=== PATIENT | female | born 1975 | race Caucasian/White ===

== ENCOUNTER → 2016-12-22 | Outpatient (CLI) | payer OTHER ==
[2016-12-22 09:48] LABS: Basophils % (A) 1 %; CH 28.4; CHCM 33.4; Eosinophils # (A) 0.2 k/uL (0-0.7); Eosinophils % (A) 3 %; HCT 41.5 % (34.0-46.0); HDW 3.09; HGB 13.5 gm/dL (11.4-16.0); Luc # (Auto) 0.16; Luc % (Auto) 2; Lymphocytes # (A) 1.5 k/uL (1.0-4.8); Lymphocytes % (A) 19 %; MCH 27.7 pg (25.0-35.0); MCHC 32.6 g/dL (31.0-37.0); MCV 85.1 fL (80.0-100.0); Mean Platelet Volume 7.2; Monocytes # (A) 0.4 k/uL (0-1.0); Monocytes % (A) 5 %; Neutrophils # (A) 5.5 k/uL (1.3-7.7); Neutrophils % (A) 71 %; RBC 4.87 m/uL (3.80-5.40); RDW 15.4 % (11.5-15.5); WBC 7.7 k/uL (3.8-10.6); WBC (Perox) 8.11
[2016-12-22 10:52] LABS: Erythrocyte Sedimentation Rate 13 mm/hr (0-20)
[2016-12-22 11:29] LABS: ALT 31 U/L (9-52); AST 22 U/L (14-36); Anion Gap 15 mmol/L; Blood Urea Nitrogen 13 mg/dL (7-17); C Reactive Protein 7.7 mg/L (<10.0); Calcium 9.5 mg/dL (8.4-10.2); Carbon Dioxide 21 mmol/L (22-30); Chloride 105 mmol/L (98-107); Glucose 82 mg/dL (74-99); Non-African American GFR(MDRD) >60 (>60 ml/min/1.73 sqM); Potassium 4.5 mmol/L (3.5-5.1); Sodium 141 mmol/L (137-145)
== END | disposition home or self-care (01) ==
LOC: LABWHC1 08:28
PROVIDERS: ATTEND Internal Medicine Rheumatology
DX: M13.0 Polyarthritis, unspecified (principal)
CPT/HCPCS: 36415; 80048; 84450; 84460; 85025; 85652; 86140

== ENCOUNTER → 2017-01-20 | Outpatient (CLI) | payer OTHER ==
--- NOTE | 2017-01-23 09:38 | MM ---
Reason for exam: screening (asymptomatic). Baseline mammogram. Physical Findings: Nurse did not find any significant physical abnormalities on exam. MG Screening Mammo w CAD Bilateral CC and MLO view(s) were taken. The breast tissue is heterogeneously dense. This may lower the sensitivity of mammography. No significant changes when compared with prior studies. ASSESSMENT: Benign, BI-RAD 2 RECOMMENDATION: Routine screening mammogram of both breasts in 1 year.
== END | disposition home or self-care (01) ==
LOC: RADMAMWWP 06:53
PROVIDERS: ATTEND Family Medicine
DX: Z12.31 Encounter for screening mammogram for malignant neoplasm of breast (principal)

== ENCOUNTER → 2017-02-06 | Day surgery (SDC) | payer OTHER ==
[~2017-02-06] MED LIST: LACTATED RINGERS 1,000 ML IV SCH; LIDOCAINE 1% INJ 10MG/ML (20 ML MDV) ONE; PROPOFOL 10 MG/ML 20 ML VIAL IV ONE
[2017-02-06 07:29] VITALS: RESP 16; TEMP 97.2
--- NOTE | 2017-02-06 08:02 | P.GSHP ---
History of Present Illness H&P Date: 02/06/17 Chief Complaint: History of colonic polyps This a 41-year-old female for from Dr. Fernanda macias. Patient history of clot polyps. Her last colonoscopy was approximately 2 years ago. - Constitutional Constitutional: Reports as per HPI Past Medical History Past Medical History: CVA/TIA Additional Past Medical History / Comment(s): HX OF SEVERAL TIA'S -MOST OCCURRED DURING , RARE MIGRAINES, I.B.S.; Eosinophilic Esophagitis; Colitis; Endometriosis History of Any Multi-Drug Resistant Organisms: None Reported Additional Past Surgical History / Comment(s): FRANKIE FOOT SURG, LAPAROSCOPY FOR ENDOMETRIOSIS, COLONOSCOPY. STEROID INJECTIONS IN KNEES JANUARY 2015. Past Anesthesia/Blood Transfusion Reactions: No Reported Reaction, Motion Sickness Past Psychological History: No Psychological Hx Reported Smoking Status: Never smoker Past Alcohol Use History: None Reported Past Drug Use History: None Reported - Past Family History Mother Additional Family Medical History / Comment(s): BENIGN BRAIN TUMOR Medications and Allergies Home Medications Medication Instructions Recorded Confirmed Type Ergocalciferol (Vitamin D2) 1.25 mg PO WEEKLY 02/06/17 02/06/17 History [Vitamin D2] Folic Acid 1 mg PO DAILY 02/06/17 02/06/17 History Gabapentin [Neurontin] 300 mg PO DAILY 02/06/17 02/06/17 History Methotrexate Sodium [Methotrexate] 15 mg PO WEEKLY 02/06/17 02/06/17 History Omeprazole 20 mg PO DAILY 02/06/17 02/06/17 History Allergies Allergy/AdvReac Type Severity Reaction Status Date / Time wheat Allergy Unknown Verified 08/16/15 13:31 Iodinated Contrast Media - AdvReac Severe COUGHING Verified 08/16/15 13:31 Oral and [Iodinated Contrast Media - IV Dye] grains Allergy Unknown Uncoded 08/16/15 13:31 Surgical - Exam Vital Signs Temp Pulse Resp BP Pulse Ox 97.2 F L 63 16 114/74 96 02/06/17 07:27 02/06/17 07:27 02/06/17 07:27 02/06/17 07:27 02/06/17 07:27 - General well developed, no distress - Eyes PERRL - ENT normal pinna - Neck no masses - Respiratory normal expansion - Cardiovascular Rhythm: regular - Abdomen Abdomen: soft, non tender Assessment and Plan Plan: History of colon polyps. We'll perform colonoscopy.
--- NOTE | 2017-02-06 08:15 | P.OP ---
Date of Procedure: 02/06/17 Preoperative Diagnosis: History of colonic polyps Postoperative Diagnosis: Normal colonoscopy Procedure(s) Performed: Colonoscopy Anesthesia: MAC Surgeon: Lico Mulligan Pathology: none sent Condition: stable Disposition: PACU Description of Procedure: PROCEDURE: The patient was placed on the endoscopy table in the lateral position. Digital rectal examination was performed which revealed no abnormalities. s. Flexible colonoscope was then placed in the patient's anus and passed throughout the entire colon. The ileocecal valve was visualized. The cecum, ascending, transverse, descending and sigmoid colon were normal. The rectum was normal as well. There were no masses, polyps or diverticula noted in the entire colon. SUMMARY OF FINDINGS: Normal colonoscopy.
[2017-02-06 08:38] VITALS: BP 114/68
[2017-02-06 08:51] VITALS: PULSE 62
== END | disposition home or self-care (01) ==
LOC: ORWHC2ENDO 07:04
PROVIDERS: ATTEND Surgery
DX: Z12.11 Encounter for screening for malignant neoplasm of colon (principal); Z86.010 Personal history of colon polyps; K21.9 Gastro-esophageal reflux disease without esophagitis; Z86.73 Personal history of transient ischemic attack (TIA), and cerebral infarction without residual deficits; Z79.899 Other long term (current) drug therapy; Z91.018 Allergy to other foods
CPT/HCPCS: 81025; 84703; J2001; J2704; G0105; 45378

== ENCOUNTER 2019-02-07 19:47 | Emergency (ER) | payer BC, OTHER ==
[2019-02-07 20:04] VITALS: RESP 16
[2019-02-07] MEDS ORDERED: MORPHINE SULFATE 4 MG/ML SYRINGE IM STA (20:22)
[2019-02-07] MEDS ORDERED: KETOROLAC 30 MG/ML 1 ML VIAL IM STA (20:22)
[2019-02-07] MEDS ORDERED: LIDOCAINE 5% PATCH TOPICAL STA (20:23)
--- NOTE | 2019-02-07 20:25 | ED ---
General Adult HPI - General Chief complaint: Extremity Problem,Nontraumatic Stated complaint: leg pain/varicose veins Time Seen by Provider: 02/07/19 20:06 Source: patient Mode of arrival: ambulatory Limitations: no limitations - History of Present Illness Initial comments: Dictation was produced using [employer] dictation software. please excuse any grammatical, word or spelling errors. Chief Complaint: 43-year-old female presents with left thigh pain. History of Present Illness: She is a 43-year-old female presents with left thigh pain. Patient states today she noted the pain. She describes the pain as a sharp knifelike sensation to her left lateral thigh. She states that she looked down and noticed a new varicose vein. Denies any other complaints at this time. Patient still able to ambulate. Patient has a past medical history of rheumatoid toilet disease. Denies any neural deficits to the left lower extre mity. The ROS documented in this emergency department record has been reviewed and confirmed by me. Those systems with pertinent positive or negative responses have been documented in the HPI. All other systems are other negative and/or noncontributory. PHYSICAL EXAM: General Impression: Alert and oriented x3, not in acute distress HEENT: Normocephalic atraumatic, extra-ocular movements intact, pupils equal and reactive to light bilaterally, mucous membranes moist. Cardiovascular: Heart regular rate and rhythm, S1&S2 audible, no murmurs, rubs or gallops Chest: Lungs clear to auscultation bilaterally, no rhonchi, no wheeze, no rales Abdomen: Bowel sounds present, abdomen soft, non-tender, non-distended, no organomegaly Musculoskeletal: Pulses present and equal in all extremities, no peripheral edema, point tenderness over the left lateral thigh, no induration, erythema, there is a varicosity noted there. Motor: no focal deficits noted Neurological: CN II-XII grossly intact, no focal motor or sensory deficits noted Skin: Intact with no visualized rashes Psych: Normal affect and mood ED course: 43-year-old female with past medical history of rheumatoid disease presents with left lateral thigh pain. As upon arrival are within acceptable limits. Patient's symptoms are positive for point tenderness over a set of varicosity.. No signs of infection at this time. Patient same ambulate without complications. Patient here seeking relief. Imaging studies indicated at this time. There is concern that maybe patient's symptoms reflect superficial thrombophlebitis or symptomatic varicosity. Patient lidocaine patch, IM analgesia. Patient clear for discharge. Patient does follow up with PCP. Patient referral to vascular surgery for evaluation of varicose veins. - Related Data Home Medications Medication Instructions Recorded Confirmed Ergocalciferol (Vitamin D2) 1.25 mg PO WEEKLY 02/06/17 02/06/17 [Vitamin D2] Folic Acid 1 mg PO DAILY 02/06/17 02/06/17 Gabapentin [Neurontin] 300 mg PO DAILY 02/06/17 02/06/17 Methotrexate Sodium [Methotrexate] 15 mg PO WEEKLY 02/06/17 02/06/17 Omeprazole 20 mg PO DAILY 02/06/17 02/06/17 Allergies Allergy/AdvReac Type Severity Reaction Status Date / Time wheat Allergy Unknown Verified 02/07/19 20:04 Iodinated Contrast- Oral and AdvReac Severe COUGHING Verified 02/07/19 20:04 IV Dye [Iodinated Contrast Media - IV Dye] grains Allergy Unknown Uncoded 02/07/19 20:04 Review of Systems ROS Statement: Those systems with pertinent positive or pertinent negative responses have been documented in the HPI. ROS Other: All systems not noted in ROS Statement are negative. Past Medical History Past Medical History: CVA/TIA, Osteoarthritis (OA), Rheumatoid Arthritis (RA) Additional Past Medical History / Comment(s): RARE MIGRAINES, I.B.S.; Eosinophilic Esophagitis; Colitis; Endometriosis History of Any Multi-Drug Resistant Organisms: None Reported Additional Past Surgical History / Comment(s): FRANKIE FOOT SURG, LAPAROSCOPY FOR ENDOMETRIOSIS, COLONOSCOPY. STEROID INJECTIONS IN KNEES JANUARY 2015. Past Anesthesia/Blood Transfusion Reactions: No Reported Reaction, Motion Sickness Past Psychological History: No Psychological Hx Reported Smoking Status: Never smoker Past Alcohol Use History: None Reported Past Drug Use History: None Reported - Past Family History Mother Additional Family Medical History / Comment(s): BENIGN BRAIN TUMOR General Exam Limitations: no limitations Course Vital Signs 02/07/19 20:01 Temperature 98.4 F Pulse Rate 86 Respiratory 16 Rate Blood Pressure 146/83 O2 Sat by Pulse 98 Oximetry Disposition Clinical Impression: Varicose vein of leg, Leg pain Disposition: HOME SELF-CARE Condition: Good Instructions (If sedation given, give patient instructions): Vein Stripping (DC) Is patient prescribed a controlled substance at d/c from ED?: No Referrals: Fernanda Hopkins DO [Primary Care Provider] - 1-2 days Valentín Lundy DO [Doctor of Osteopathic Medicine] - 1-2 days Nathaniel Rosado DO [STAFF PHYSICIAN] - 1-2 days Sorin Riggs MD [STAFF PHYSICIAN] - 1-2 days Time of Disposition: 20:25
[2019-02-07 21:11] VITALS: BP 122/75; PULSE 70; TEMP 98.2
== END 2019-02-07 21:07 | disposition home or self-care (01) ==
LOC: EC 19:47
DX: I83.812 Varicose veins of left lower extremity with pain (principal); M06.9 Rheumatoid arthritis, unspecified; Z91.018 Allergy to other foods; Z91.041 Radiographic dye allergy status; Z79.899 Other long term (current) drug therapy; Z86.69 Personal history of other diseases of the nervous system and sense organs; Z87.19 Personal history of other diseases of the digestive system; Z98.890 Other specified postprocedural states
CPT/HCPCS: 99283; 96372 ×2; J2270; J1885

== ENCOUNTER → 2019-02-14 | Outpatient (CLI) | payer BC ==
--- NOTE | 2019-02-14 15:53 | XR ---
EXAMINATION TYPE: XR femur LT DATE OF EXAM: 02/14/2019 COMPARISON: NONE HISTORY: 44-year-old female with leg pain for one week TECHNIQUE: None FINDINGS: There is mild marginal spurring at the left hip. Hip and knee articulations appear grossly intact. Ex tensor mechanism is intact. No knee joint effusion. No acute fracture or significant soft tissue abno rmality seen. IMPRESSION: Left femur without acute osseous abnormality seen.
== END | disposition home or self-care (01) ==
LOC: RADXRMAIN 14:55
PROVIDERS: ATTEND Surgery
DX: M79.605 Pain in left leg (principal)

== ENCOUNTER 2019-04-05 09:12 | Day surgery (SDC) | payer BC ==
[2019-04-03 12:47] VITALS: BMI 33.2
[2019-04-05 09:56] VITALS: RESP 16; TEMP 98.6
[2019-04-05] MEDS ORDERED: LACTATED RINGERS 1,000 ML IV ONE (10:00)
[2019-04-05] MEDS ORDERED: LIDOCAINE 1% 20 ML VIAL (10MG/ML) FOR IV START INTRADERMA ONE (10:00)
[2019-04-05] MEDS ORDERED: GLYCOPYRROLATE 0.2 MG/ML 2 ML VIAL ONE (10:28)
[2019-04-05] MEDS ORDERED: LIDOCAINE 1% INJ 10MG/ML (20 ML MDV) ONE (10:28)
[2019-04-05] MEDS ORDERED: PROPOFOL 10 MG/ML 20 ML VIAL IV ONE (10:28)
--- NOTE | 2019-04-05 10:38 | P.GSHP ---
History of Present Illness H&P Date: 04/05/19 Chief Complaint: GERD, inflamed or bowel disease This is a 44-year-old female who's had issues with anemia, GI bleed and GERD. She has a history of Crohn's disease. Past Medical History Past Medical History: CVA/TIA, Fibromyalgia, GERD/Reflux, Osteoarthritis (OA), Rheumatoid Arthritis (RA) Additional Past Medical History / Comment(s): RARE MIGRAINES, I.B.S.; Eosinophilic Esophagitis; Colitis; Endometriosis, colon polyps, recent anemia, TIA's x4-some short term memory issues, bleeding hemorrhoids currently History of Any Multi-Drug Resistant Organisms: None Reported Past Surgical History: Orthopedic Surgery Additional Past Surgical History / Comment(s): FRANKIE FOOT SURG, LAPAROSCOPY FOR ENDOMETRIOSIS, COLONOSCOPIES Past Anesthesia/Blood Transfusion Reactions: No Reported Reaction, Motion Sickness Additional Past Anesthesia/Blood Transfusion Reaction / Comment(s): occasionally slow to wake up Smoking Status: Never smoker - Past Family History Mother Additional Family Medical History / Comment(s): BENIGN BRAIN TUMOR Medications and Allergies Home Medications Medication Instructions Recorded Confirmed Type DULoxetine HCL [Cymbalta] 30 mg PO DAILY 04/03/19 04/03/19 History Ferrous Sulfate [Feosol] 65 mg PO DAILY 04/03/19 04/03/19 History Hydroxychloroquine Sulfate 200 mg PO BID 04/03/19 04/03/19 History [Plaquenil] Pantoprazole Sodium [Protonix] 40 mg PO DAILY 04/03/19 04/03/19 History Phentermine HCl [Adipex-P] 0.5 tab PO DAILY 04/03/19 04/03/19 History Allergies Allergy/AdvReac Type Severity Reaction Status Date / Time wheat Allergy Unknown Verified 04/05/19 09:48 Iodinated Contrast- Oral and AdvReac Severe COUGHING Verified 04/05/19 09:48 IV Dye [Iodinated Contrast Media - IV Dye] grains Allergy Unknown Uncoded 04/05/19 09:48 Surgical - Exam Vital Signs Temp Pulse Resp BP Pulse Ox 98.6 F 77 16 129/70 98 04/05/19 09:54 04/05/19 09:54 04/05/19 09:54 04/05/19 09:54 04/05/19 09:54 - General well developed, well nourished, no distress - Eyes PERRL - ENT normal pinna - Neck no masses - Respiratory normal expansion - Cardiovascular Rhythm: regular - Abdomen Abdomen: soft, non tender Assessment and Plan Assessment: GERD, Crohn disease. We'll perform EGD and colonoscopy.
--- NOTE | 2019-04-05 10:59 | P.OP ---
Date of Procedure: 04/05/19 Preoperative Diagnosis: GERD GI bleed Crohn's disease Postoperative Diagnosis: Antral gastritis Moderate size hiatal hernia Mild esophagitis Rectal polyp Procedure(s) Performed: EGD Colonoscopy Anesthesia: MAC Surgeon: Lico Mulligan Pathology: other (Rectal polyp, antrum, esophagus) Condition: stable Disposition: PACU Description of Procedure: The patient's placed on the endoscopy table in the lateral position. She received IV sedation. The gastroscope placed oropharynx and passed into the e sophagus and into the stomach. Scope was then placed through the pylorus. The first and second portion of the duodenum appeared normal. Scope was then brought back the antrum this appeared mildly inflamed. A biopsy was performed. The scope was then retroflexed and the remainder of the stomach appeared normal. The GE junction was at 38 cm. There was a moderate size hiatal hernia. The distal esophagus appeared mildly inflamed a biopsies performed. The proximal esophagus appeared normal. Scope was withdrawn for patient. Next digital rectal exam was performed which revealed a few external hemorrhoids. Flexible colonoscope was then placed patient anus passed rotator entire colon. The ileocecal valve was visualized. The cecum, ascending and transverse colon appeared normal. The descending and sigmoid colon appeared normal. The scope was then brought back the rectum and a polyp was visualized and removed with the cold forcep. Scope was withdrawn for patient. There is no active bleeding seen on endoscopy. Patient's Rectal Bleeding May Be Due To Hemorrhoids.
[2019-04-05 11:11] VITALS: BP 114/74; PULSE 58
== END 2019-04-05 11:26 | disposition home or self-care (01) ==
LOC: ORWHC2ENDO 09:12
PROVIDERS: ATTEND Surgery
DX: K29.50 Unspecified chronic gastritis without bleeding (principal); K21.0 Gastro-esophageal reflux disease with esophagitis; K44.9 Diaphragmatic hernia without obstruction or gangrene; K62.1 Rectal polyp; K64.4 Residual hemorrhoidal skin tags; K50.90 Crohn's disease, unspecified, without complications; M79.7 Fibromyalgia; M19.90 Unspecified osteoarthritis, unspecified site; M06.9 Rheumatoid arthritis, unspecified; G43.909 Migraine, unspecified, not intractable, without status migrainosus; I69.311 Memory deficit following cerebral infarction; D64.9 Anemia, unspecified; Z86.010 Personal history of colon polyps; Z79.899 Other long term (current) drug therapy; Z91.041 Radiographic dye allergy status; Z91.018 Allergy to other foods
CPT/HCPCS: 81025; 88305; 45380; 43239; J2001; J2704

== ENCOUNTER 2019-05-18 21:59 | Emergency (ER) | payer BC ==
[2019-05-18 22:06] VITALS: TEMP 97.8
[2019-05-18] MEDS ORDERED: KETOROLAC 30 MG/ML 1 ML VIAL IM STA (22:27)
[2019-05-18] MEDS ORDERED: DIAZEPAM 5 MG/ML 2 ML INJ IM ONE (22:27)
--- NOTE | 2019-05-18 22:53 | ED ---
Neck Injury/Pain HPI - General Chief Complaint: Neck Pain/Injury Stated Complaint: Shoulder/neck pain Time Seen by Provider: 05/18/19 22:11 Mode of arrival: ambulatory Limitations: no limitations - History of Present Illness Initial Comments: 44-year-old female patient with past medical history significant for fibromyalgia and rheumatoid arthritis presents to the emergency department today for evaluation of right neck and right shoulder pain. Patient states that she has been having issues with her neck and shoulder for the last several months. States she's been getting repeated steroid injections. Patient states are up-to-date states the pain has gradually increased. Patient states that the pain increases with movement of the neck her right arm. She denies testicular shortness of breath, upper back pain, nausea, or vomiting. Denies any abdominal pain. Denies any fever or chills. Patient does not take any pain medications at home. Patient denies any recent rash, diarrhea, constipation, back pain, numbness, tingling, dizziness, weakness, hematuria, dysuria, urinary urgency, urinary frequency, headache, visual changes, or any other complaints. - Related Data Home Medications Medication Instructions Recorded Confirmed DULoxetine HCL [Cymbalta] 30 mg PO DAILY 04/03/19 04/03/19 Ferrous Sulfate [Feosol] 65 mg PO DAILY 04/03/19 04/03/19 Hydroxychloroquine Sulfate 200 mg PO BID 04/03/19 04/03/19 [Plaquenil] Pantoprazole Sodium [Protonix] 40 mg PO DAILY 04/03/19 04/03/19 Phentermine HCl [Adipex-P] 0.5 tab PO DAILY 04/03/19 04/03/19 Allergies Allergy/AdvReac Type Severity Reaction Status Date / Time wheat Allergy Unknown Verified 05/18/19 22:05 Iodinated Contrast- Oral and AdvReac Severe COUGHING Verified 05/18/19 22:05 IV Dye [Iodinated Contrast Media - IV Dye] grains Allergy Unknown Uncoded 05/18/19 22:05 Review of Systems ROS Statement: Those systems with pertinent positive or pertinent negative responses have been documented in the HPI. ROS Other: All systems not noted in ROS Statement are negative. Past Medical History Past Medical History: CVA/TIA, Fibromyalgia, GERD/Reflux, Osteoarthritis (OA), Rheumatoid Arthritis (RA) Additional Past Medical History / Comment(s): RARE MIGRAINES, I.B.S.; Eosinophilic Esophagitis; Colitis; Endometriosis, colon polyps, recent anemia, TIA's x4-some short term memory issues, bleeding hemorrhoids currently History of Any Multi-Drug Resistant Organisms: None Reported Past Surgical History: Orthopedic Surgery Additional Past Surgical History / Comment(s): FRANKIE FOOT SURG, LAPAROSCOPY FOR ENDOMETRIOSIS, COLONOSCOPIES Past Anesthesia/Blood Transfusion Reactions: No Reported Reaction, Motion Sickness Additional Past Anesthesia/Blood Transfusion Reaction / Comment(s): occasionally slow to wake up Past Psychological History: No Psychological Hx Reported Smoking Status: Never smoker Past Alcohol Use History: None Reported Past Drug Use History: None Reported - Past Family History Mother Additional Family Medical History / Comment(s): BENIGN BRAIN TUMOR General Exam Limitations: no limitations General appearance: alert, in no apparent distress, other (Physical well- developed, well-nourished adult female patient in no acute distress. Vital signs upon presentation are temperature 97.8F, pulse 69, respirations 18, blood pressure 121/72, pulse ox 98% on room air.) Eye exam: Present: normal appearance, PERRL, EOMI. Absent: scleral icterus, conjunctival injection, periorbital swelling ENT exam: Present: normal exam, normal oropharynx, mucous membranes moist Neck exam: Present: tenderness (Right lateral neck tenderness). Absent: normal inspection, meningismus, lymphadenopathy Respiratory exam: Present: normal lung sounds bilaterally. Absent: respiratory distress, wheezes, rales, rhonchi, stridor Cardiovascular Exam: Present: regular rate, normal rhythm, normal heart sounds. Absent: systolic murmur, diastolic murmur, rubs, gallop, clicks GI/Abdominal exam: Present: soft, normal bowel sounds. Absent: distended, tenderness, guarding, rebound, rigid Extremities exam: Present: normal inspection, full ROM, normal capillary refill, other (Skin to the upper [place] is pink, warm, and dry. Cap refills less than 3 seconds. Radial pulses 2+ and equal bilaterally.). Absent: tenderness, pedal edema, joint swelling, calf tenderness Back exam: Present: normal inspection. Absent: vertebral tenderness Neurological exam: Present: alert, oriented X3, CN II-XII intact Psychiatric exam: Present: normal affect, normal mood Skin exam: Present: warm, dry, intact, normal color. Absent: rash Course Vital Signs 06/22/19 22:03 Temperature 97.8 F Pulse Rate 69 Respiratory 18 Rate Blood Pressure 121/72 O2 Sat by Pulse 98 Oximetry Medical Decision Making - Medical Decision Making 44-year-old female patient with past medical history significant for fibromyalgia and rheumatoid arthritis presents to the emergency department today for evaluation of increased right neck and right shoulder pain. Patient states she's been having pain issues with the area for the last several months. Worsening today. She did have a fall into a pool yesterday which she states did strain the area. She reports increased pain with movement. Denies chest pain or shortness of breath. Denies any back or abdominal pain. Physical examination revealed normal neurovascular status some tenderness over the right lateral neck. She is given IM Toradol and Valium here in the emergency department. Upon reevaluation she does report improve symptoms however still reporting pain to the neck we will give additional dose of morphine and discharge home to follow-up with her primary care physician for recheck as soon as possible. She'll be given Tylenol with codeine starter pack and instructed to use these sparingly for severe pain. Return parameters discussed in detail. She verbalizes understanding and agrees with this plan. Disposition Clinical Impression: Shoulder pain, Neck pain Disposition: HOME SELF-CARE Condition: Good Instructions (If sedation given, give patient instructions): Shoulder Pain (ED), Neck Pain (ED) Additional Instructions: Follow-up with your primary care physician for recheck as soon as possible. Return to the emergency department immediately for any new, worsening, or concerning symptoms. Is patient prescribed a controlled substance at d/c from ED?: No Referrals: Fernanda Hopkins DO [Primary Care Provider] - 1-2 days Time of Disposition: 23:36
[2019-05-18] MEDS ORDERED: MORPHINE SULFATE 4 MG/ML SYRINGE IM STA (23:35)
[2019-05-18] MEDS ORDERED: ACET/COD 300 MG/30 MG STARTER PACK 6 TAB BTL PO STA (23:35)
[2019-05-19 00:03] VITALS: BP 112/57; PULSE 64; RESP 16
== END 2019-05-18 23:59 | disposition home or self-care (01) ==
LOC: EC 21:59
DX: M54.2 Cervicalgia (principal); M25.511 Pain in right shoulder; M79.7 Fibromyalgia; K21.9 Gastro-esophageal reflux disease without esophagitis; M06.9 Rheumatoid arthritis, unspecified; D64.9 Anemia, unspecified; Z86.73 Personal history of transient ischemic attack (TIA), and cerebral infarction without residual deficits; Z79.899 Other long term (current) drug therapy; Z91.018 Allergy to other foods; Z91.041 Radiographic dye allergy status
CPT/HCPCS: 99283; 96372 ×3; J2270; J3360; J1885

== ENCOUNTER 2019-07-08 07:45 | Inpatient (IN) | payer BC ==
[2019-07-15] MEDS ORDERED: HEPARIN SODIUM,PORCINE 5,000 UNIT/ML 1 ML VIAL SQ ONE (05:00)
[2019-07-15] MEDS ORDERED: ONDANSETRON 4 MG/2 ML VIAL IVP ONE (05:50)
[2019-07-15] MEDS ORDERED: LIDOCAINE 1% 20 ML VIAL (10MG/ML) FOR IV START INTRADERMA PRN (05:50)
[2019-07-15] MEDS ORDERED: SCOPOLAMINE 1.5MG/72HR PATCH TRANSDERM ONE (05:50)
[2019-07-15] MEDS ORDERED: LACTATED RINGERS 1,000 ML IV SCH (05:50)
[2019-07-15] MEDS ORDERED: DEXAMETHASONE SOD PHOSPHATE 10 MG/ML 1 ML VIAL IV ONE (05:50)
[2019-07-15] MEDS ORDERED: HYDROmorphone 0.5 MG/0.5 ML SYRINGE IVP PRN (05:50)
--- NOTE | 2019-07-15 09:46 | P.GSHP ---
History of Present Illness H&P Date: 07/15/19 Chief Complaint: GERD This a 44-year-old female referred from Dr. Fernanda macias.The patient has had long-standing problems with reflux esophagitis. The patient underwent recent EGD is found have evidence of esophagitis. Patient has been well informed on th e procedure of laparoscopic Anshul fundoplication. The patient is aware the risk of the conversion to the open procedure, risk of injury to the stomach, liver and spleen. The patient is also a risk of recurrent GERD and dysphagia symptoms. The patient understands there is a postoperative diet of full liquids for 2 weeks after surgery. Past Medical History Past Medical History: CVA/TIA, Fibromyalgia, GERD/Reflux, Osteoarthritis (OA), Rheumatoid Arthritis (RA) Additional Past Medical History / Comment(s): RARE MIGRAINES, I.B.S.; Eosinophilic Esophagitis; Colitis; Endometriosis, colon polyps, recent anemia, TIA's x4-some short term memory issues, HIATAL HERNIA History of Any Multi-Drug Resistant Organisms: None Reported Past Surgical History: Orthopedic Surgery Additional Past Surgical History / Comment(s): FRANKIE FOOT SURG, LAPAROSCOPY FOR ENDOMETRIOSIS, COLONOSCOPIES Past Anesthesia/Blood Transfusion Reactions: Previous Problems w/ Anesthesia, Motion Sickness Additional Past Anesthesia/Blood Transfusion Reaction / Comment(s): occasionally slow to wake up Smoking Status: Never smoker - Past Family History Sister(s) Family Medical History: Deep Vein Thrombosis (DVT) Mother Additional Family Medical History / Comment(s): BENIGN BRAIN TUMOR Medications and Allergies Home Medications Medication Instructions Recorded Confirmed Type DULoxetine HCL [Cymbalta] 60 mg PO HS 04/03/19 07/15/19 History Pantoprazole Sodium [Protonix] 40 mg PO DAILY 04/03/19 07/09/19 History Phentermine HCl [Adipex-P] 0.5 tab PO DAILY 04/03/19 07/09/19 History Cyclobenzaprine [Flexeril] 10 mg PO HS 07/09/19 07/09/19 History Multivitamins, Thera [Multivitamin 1 tab PO DAILY 07/09/19 07/09/19 History (formulary)] Pilocarpine [Salagen] 5 mg PO TID 07/09/19 07/15/19 History Folic Acid 0.4 mg PO DAILY 07/10/19 07/10/19 History Methotrexate [Xatmep Oral Soln] 12.5 mg PO SA 07/10/19 07/15/19 History Allergies Allergy/AdvReac Type Severity Reaction Status Date / Time cinnamon Allergy Swelling Verified 07/15/19 09:09 wheat Allergy SORE Verified 07/09/19 14:55 THROAT AND MOUTH Iodinated Contrast- Oral and AdvReac Severe COUGHING Verified 05/18/19 22:05 IV Dye [Iodinated Contrast Media - IV Dye] grains Allergy SORE Uncoded 07/09/19 14:55 THROAT AND MOUTH Surgical - Exam Vital Signs Temp Pulse Resp BP Pulse Ox 97.8 F 67 18 111/58 96 07/15/19 09:01 07/15/19 09:01 07/15/19 09:01 07/15/19 09:01 07/15/19 09:01 - General well developed, well nourished, no distress - Eyes PERRL - ENT normal pinna - Neck no masses - Respiratory normal expansion - Cardiovascular Rhythm: regular - Abdomen Abdomen: soft, non tender Assessment and Plan Assessment: GERD. We'll perform laparoscopic Anshul fundoplication.
[2019-07-15] MEDS ORDERED: ROCURONIUM BROMIDE 10 MG/ML 10 ML VIAL IV ONE (10:07)
[2019-07-15] MEDS ORDERED: NEOSTIGMINE 1 MG/ML 10 ML VIAL ONE (10:07)
[2019-07-15] MEDS ORDERED: SUCCINYLCHOLINE CHLORIDE 100 MG/5 ML SYR IV ONE (10:07)
[2019-07-15] MEDS ORDERED: fentaNYL (PF) 50 MCG/ML 2 ML AMP ONE (10:07)
[2019-07-15] MEDS ORDERED: LIDOCAINE 1% INJ 10MG/ML (20 ML MDV) ONE (10:07)
[2019-07-15] MEDS ORDERED: PROPOFOL 10 MG/ML 20 ML VIAL IV ONE (10:07)
[2019-07-15] MEDS ORDERED: MIDAZOLAM 2 MG/2 ML VIAL ONE (10:07)
[2019-07-15] MEDS ORDERED: GLYCOPYRROLATE 0.2 MG/ML 2 ML VIAL ONE (10:07)
[2019-07-15] MEDS ORDERED: ePHEDrine SULFATE/0.9% NACL/PF 50 MG/5 ML SYRINGE IV ONE (10:07)
[2019-07-15] MEDS ORDERED: BUPIVACAIN-EPI 0.25%-1:200,000 30 ML VIAL SQ ONE (10:40)
[2019-07-15] MEDS ORDERED: LACTATED RINGERS 1,000 ML IV ONE (11:05)
[2019-07-15] MEDS ORDERED: ONDANSETRON 4 MG/2 ML VIAL IVP PRN (11:28)
--- NOTE | 2019-07-15 11:28 | P.OP ---
Date of Procedure: 07/15/19 Preoperative Diagnosis: GERD Postoperative Diagnosis: GERD Procedure(s) Performed: Laparoscopic Anshul fundoplication Anesthesia: SACHA Surgeon: Lico Mulligan Estimated Blood Loss (ml): 5 Pathology: none sent Condition: stable Disposition: PACU Description of Procedure: The patient was placed on the operating table in the supine position. The patient received general anesthesia. And was placed in dorsal lithotomy position. The patient was prepped and draped in the usual sterile fashion. The skin incision sites were anesthetized with 1% local Xylocaine. The skin was incised in the left periumbilical area and then using a blade less 5 mm trocar under direct visualization panel cavity was entered. After adequate insufflation the laparoscope was then placed into the peritoneal cavity. Next a 5 mm trochars placed in the right epigastric position. Another 5 millimeter trocar the right lateral position. Another 5 millimeter trocar in the left lateral position a 5 mm trocar is placed in the left epigastric position. And then the initial 5 mm trocar was exchanged for a 10 mm trocar. The left lateral lobe liver was retracted. The hernia was seen. The crural defect was then dissected using the Harmonic scissors device. A 360 crural dissection was per formed the esophagus stomach was reduced back into the peritoneal Cavity. The crural defect was then closed using 2-0 Ethibond suture. Next the fundus of the stomach was mobilized using the Bulger scissors device. and then a 58-[place] bougie dilator was placed oropharynx passed into the esophagus and stomach the fundal plication wrap was then performed by grasping the fundus posteriorly and bringing it around the esophagus and stomach fundoplication was then performed using 2-0 Ethibond suture. Care was taken that the fundal location rested over top of the intra-abdominal esophagus. There was no injury seen to the stomach or esophagus. The dilator was then withdrawn. The abdomen was irrigated there is no bleeding seen. The trochars were then withdrawn and then skin incision sites were closed using 3-0 Monocryl suture Steri-Strips are applied. Patient thought procedure well and sent to recovery room in stable condition.
[2019-07-15] MEDS ORDERED: ACETAMINOPHEN ORAL SUSP 160 MG/5 ML CUP PO PRN (13:48)
[2019-07-15 14:11] VITALS: BMI 32.5
[2019-07-15 14:33] LABS: Anisocytosis Slight; Basophils % (A) 0 %; Eosinophils % (A) 0 %; HCT 29.1 % (34.0-46.0); HGB 8.9 gm/dL (11.4-16.0); Hypochromasia Marked; Lymphocytes # (A) 0.3 k/uL (1.0-4.8); Lymphocytes % (A) 3 %; MCH 21.9 pg (25.0-35.0); MCHC 30.8 g/dL (31.0-37.0); MCV 71.3 fL (80.0-100.0); Mean Platelet Volume 6.9; Microcytosis Marked; Monocytes # (A) 0.3 k/uL (0-1.0); Monocytes % (A) 3 %; Neutrophils # (A) 11.2 k/uL (1.3-7.7); Neutrophils % (A) 94 %; Platelet Count 287 k/uL (150-450); RBC 4.08 m/uL (3.80-5.40); RDW 18.1 % (11.5-15.5); WBC 11.9 k/uL (3.8-10.6)
[2019-07-15 14:38] LABS: African American GFR (CKD) >90 (>60 ml/min/1.73 sqM); Anion Gap 8 mmol/L; Blood Urea Nitrogen 10 mg/dL (7-17); Calcium 8.8 mg/dL (8.4-10.2); Carbon Dioxide 25 mmol/L (22-30); Chloride 106 mmol/L (98-107); Glucose 111 mg/dL (74-99); Non-African American GFR(CKD) >90 (>60 ml/min/1.73 sqM); Potassium 3.9 mmol/L (3.5-5.1); Sodium 139 mmol/L (137-145)
[2019-07-15] MEDS: D5-0.45% NACL WITH KCL 20MEQ/L 1,000 ML IV SCH ×2 (14:59→20:20)
[2019-07-15] MEDS: HYDROmorphone 0.5 MG/0.5 ML SYRINGE IVP PRN ×2 (16:56→21:02)
[2019-07-15] MEDS: HYDROcodone/APAP 15 ML SOLUTION PO PRN (18:51)
[2019-07-15] MEDS: FAMOTIDINE 20 MG/2 ML VIAL IV SCH (20:24)
[2019-07-15] MEDS ORDERED: CYCLOBENZAPRINE 10 MG TAB PO SCH (21:00)
[2019-07-15] MEDS ORDERED: DULoxetine HCL 60 MG CAPSULE.DR PO SCH (21:00)
[2019-07-16] MEDS: HYDROmorphone 0.5 MG/0.5 ML SYRINGE IVP PRN ×3 (00:52→13:19)
[2019-07-16] MEDS: D5-0.45% NACL WITH KCL 20MEQ/L 1,000 ML IV SCH (05:11)
[2019-07-16 06:05] LABS: Anisocytosis Slight; Basophils % (A) 0 %; Eosinophils % (A) 1 %; HCT 27.2 % (34.0-46.0); Hypochromasia Marked; Lymphocytes # (A) 1.1 k/uL (1.0-4.8); Lymphocytes % (A) 13 %; MCH 21.3 pg (25.0-35.0); MCHC 29.4 g/dL (31.0-37.0); MCV 72.5 fL (80.0-100.0); Microcytosis Moderate; Monocytes # (A) 0.4 k/uL (0-1.0); Monocytes % (A) 4 %; Neutrophils # (A) 7.2 k/uL (1.3-7.7); Neutrophils % (A) 81 %; Platelet Count 289 k/uL (150-450); Poikilocytosis Slight; RBC 3.75 m/uL (3.80-5.40); RDW 18.1 % (11.5-15.5); WBC 8.9 k/uL (3.8-10.6)
[2019-07-16 06:14] LABS: African American GFR (CKD) >90 (>60 ml/min/1.73 sqM); Anion Gap 6 mmol/L; Blood Urea Nitrogen 7 mg/dL (7-17); Calcium 8.8 mg/dL (8.4-10.2); Carbon Dioxide 27 mmol/L (22-30); Chloride 103 mmol/L (98-107); Glucose 107 mg/dL (74-99); Non-African American GFR(CKD) >90 (>60 ml/min/1.73 sqM); Potassium 3.8 mmol/L (3.5-5.1); Sodium 136 mmol/L (137-145)
[2019-07-16 07:53] VITALS: RESP 16
[2019-07-16] MEDS: HYDROcodone/APAP 15 ML SOLUTION PO PRN (08:12)
[2019-07-16] MEDS: FAMOTIDINE 20 MG/2 ML VIAL IV SCH (08:12)
--- NOTE | 2019-07-16 10:21 | P.CONS ---
History of Present Illness - Reason for Consult Consult date: 07/16/19 medical management Requesting physician: Lico Mulligan - History of Present Illness Ana Martinez is a 44 yo F with PMH significant for hiatal hernia, eosinophilic esophagitis, GERD, connective tissue disorder, iron def anemia who is admitted for anshul fundoplication. She is POD#1 and feeling well today. Reports minimal abdominal pain, only a twinge with deep inspiration felt in the shoulders. Vitals are stable and labs show stable anemia. She denies heartburn, nausea or bloating, reports minimal belching this am. Review of Systems All systems: negative Constitutional: Denies chills, Denies fever Eyes: denies blurred vision, denies pain Ears, nose, mouth and throat: Denies headache, Denies sore throat Cardiovascular: Denies chest pain, Denies shortness of breath Respiratory: Denies cough Gastrointestinal: Reports belching, Denies abdominal pain, Denies bloating, Denies diarrhea, Denies dyspepsia, Denies early satiety, Denies excessive gas, Denies heartburn, Denies nausea, Denies vomiting Genitourinary: Denies dysuria, Denies hematuria Musculoskeletal: Denies myalgias Integumentary: Denies pruritus, Denies rash Neurological: Denies numbness, Denies weakness Psychiatric: Denies anxiety, Denies depression Endocrine: Denies fatigue, Denies weight change Past Medical History Past Medical History: CVA/TIA, Fibromyalgia, GERD/Reflux, Osteoarthritis (OA), Rheumatoid Arthritis (RA) Additional Past Medical History / Comment(s): RARE MIGRAINES, I.B.S.; Eosinophilic Esophagitis; Colitis; Endometriosis, colon polyps, recent anemia, TIA's x4-some short term memory issues, HIATAL HERNIA History of Any Multi-Drug Resistant Organisms: None Reported Past Surgical History: Orthopedic Surgery Additional Past Surgical History / Comment(s): FRANKIE FOOT SURG, LAPAROSCOPY FOR ENDOMETRIOSIS, COLONOSCOPIES Past Anesthesia/Blood Transfusion Reactions: Previous Problems w/ Anesthesia, Mo tion Sickness Additional Past Anesthesia/Blood Transfusion Reaction / Comm: occasionally slow to wake up Past Psychological History: No Psychological Hx Reported Smoking Status: Never smoker Past Alcohol Use History: None Reported Past Drug Use History: None Reported - Past Family History Sister(s) Family Medical History: Deep Vein Thrombosis (DVT) Mother Additional Family Medical History / Comment(s): BENIGN BRAIN TUMOR Medications and Allergies Home Medications Medication Instructions Recorded Confirmed Type DULoxetine HCL [Cymbalta] 60 mg PO HS 04/03/19 07/15/19 History Pantoprazole Sodium [Protonix] 40 mg PO DAILY 04/03/19 07/15/19 History Phentermine HCl [Adipex-P] 18.75 mg PO DAILY 04/03/19 07/15/19 History Cyclobenzaprine [Flexeril] 10 mg PO HS 07/09/19 07/15/19 History Multivitamins, Thera [Multivitamin 1 tab PO DAILY 07/09/19 07/15/19 History (formulary)] Pilocarpine [Salagen] 5 mg PO TID 07/09/19 07/15/19 History Folic Acid 0.4 mg PO DAILY 07/10/19 07/15/19 History Methotrexate [Xatmep Oral Soln] 12.5 mg PO SA 07/10/19 07/15/19 History Allergies Allergy/AdvReac Type Severity Reaction Status Date / Time cinnamon Allergy Swelling Verified 07/15/19 13:18 wheat Allergy SORE Verified 07/15/19 13:18 THROAT AND MOUTH Iodinated Contrast- Oral and AdvReac Severe COUGHING Verified 07/15/19 13:18 IV Dye [Iodinated Contrast Media - IV Dye] grains Allergy SORE Uncoded 07/15/19 13:18 THROAT AND MOUTH Physical Exam Vitals: Vital Signs Temp Pulse Pulse Pulse Resp BP BP 07/16/19 08:00 80 07/16/19 07:51 97.9 F 80 16 132/82 07/15/19 20:00 97.9 F 103 H 18 109/70 07/15/19 16:00 64 18 135/83 07/15/19 15:00 66 18 146/80 07/15/19 14:30 64 18 130/80 07/15/19 14:00 62 18 126/79 07/15/19 13:45 67 16 126/79 07/15/19 13:30 58 L 18 126/78 07/15/19 13:15 59 L 16 115/74 07/15/19 13:00 97.7 F 58 L 16 126/77 07/15/19 12:45 65 16 115/63 07/15/19 12:30 59 L 16 124/69 07/15/19 12:15 54 L 16 119/70 07/15/19 12:00 59 L 16 113/67 07/15/19 11:45 62 16 115/58 07/15/19 11:30 76 12 108/56 Pulse Ox 07/16/19 08:00 07/16/19 07:51 95 07/15/19 20:00 95 07/15/19 16:00 07/15/19 15:00 94 L 07/15/19 14:30 96 07/15/19 14:00 94 L 07/15/19 13:45 95 07/15/19 13:30 94 L 07/15/19 13:15 95 07/15/19 13:00 95 07/15/19 12:45 07/15/19 12:30 99 07/15/19 12:15 99 07/15/19 12:00 96 07/15/19 11:45 100 07/15/19 11:30 93 L Intake and Output 07/15/19 07/16/19 07/16/19 22:59 06:59 14:59 Intake Total 120 Output Total 600 300 Balance -600 -180 Intake: Oral 120 Output: Urine 600 300 Other: Voiding Method Toilet # Voids 1 1 # Bowel Movements 0 General: well nourished, well developed, NAD. Vitals reviewed Eyes: PERRL, EOMI, conjunctiva normal HENT: normocephalic, mucus membranes moist Neck: supple, no JVD Lungs: normal respiratory effort, no wheezes or rales CV: Regular rate and rhythm, no murmur. Peripheral pulses 2+ Abdomen: soft, nondistended, no organomegaly. Nontender Lymph: no cervical or axillary LAD Skin: warm and dry. Neuro: A&Ox3, normal mood and affect Results CBC & Chem 7: 07/16/19 05:47 07/16/19 05:47 Labs: Abnormal Lab Results - Last 24 Hours (Table) 07/15/19 07/15/19 07/16/19 Range/Units 14:13 14:13 05:47 WBC 11.9 H (3.8-10.6) k/uL RBC 3.75 L (3.80-5.40) m/uL Hgb 8.9 L 8.0 L (11.4-16.0) gm/dL Hct 29.1 L 27.2 L (34.0-46.0) % MCV 71.3 L 72.5 L (80.0-100.0) fL MCH 21.9 L 21.3 L (25.0-35.0) pg MCHC 30.8 L 29.4 L (31.0-37.0) g/dL RDW 18.1 H 18.1 H (11.5-15.5) % Neutrophils # 11.2 H (1.3-7.7) k/uL Lymphocytes # 0.3 L (1.0-4.8) k/uL Sodium (137-145) mmol/L Creatinine 0.50 L (0.52-1.04) mg/dL Glucose 111 H (74-99) mg/dL 07/16/19 Range/Units 05:47 WBC (3.8-10.6) k/uL RBC (3.80-5.40) m/uL Hgb (11.4-16.0) gm/dL Hct (34.0-46.0) % MCV (80.0-100.0) fL MCH (25.0-35.0) pg MCHC (31.0-37.0) g/dL RDW (11.5-15.5) % Neutrophils # (1.3-7.7) k/uL Lymphocytes # (1.0-4.8) k/uL Sodium 136 L (137-145) mmol/L Creatinine (0.52-1.04) mg/dL Glucose 107 H (74-99) mg/dL Assessment and Plan (1) Status post Anshul fundoplication Current Visit: Yes Status: Acute Code(s): Z98.890 - OTHER SPECIFIED POSTPROCEDURAL STATES SNOMED Code(s): 957743331 (2) Eosinophilic esophagitis Current Visit: Yes Status: Acute Code(s): K20.0 - EOSINOPHILIC ESOPHAGITIS SNOMED Code(s): 168672966 (3) Connective tissue disorder Current Visit: Yes Status: Acute Code(s): M35.9 - SYSTEMIC INVOLVEMENT OF CONNECTIVE TISSUE, UNSPECIFIED SNOMED Code(s): 886443389 (4) Major depression in remission Current Visit: Yes Status: Acute Code(s): F32.5 - MAJOR DEPRESSIVE DISORDER, SINGLE EPISODE, IN FULL REMISSION SNOMED Code(s): 22979136 (5) GERD (gastroesophageal reflux disease) Current Visit: Yes Status: Acute Code(s): K21.9 - GASTRO-ESOPHAGEAL REFLUX DISEASE WITHOUT ESOPHAGITIS SNOMED Code(s): 538153998 (6) Iron deficiency anemia Current Visit: Yes Status: Acute Code(s): D50.9 - IRON DEFICIENCY ANEMIA, UNSPECIFIED SNOMED Code(s): 55784913 Plan: Continue current medical management. Hold methotrexate. Advance diet per surgery. Pt for swallow study today. She is medically stable for discharge. Resume iron supplementation and follow up in clinic
--- NOTE | 2019-07-16 11:29 | FL ---
EXAMINATION TYPE: FL esophagus cervic/pharynx DATE OF EXAM: 07/16/2019 HISTORY: 44-year-old female history of eosinophilic esophagitis with enlarging hiatal hernia status p ost Anshul fundoplication on 07/15/2019. Rule out leak/obstruction. COMPARISON: NONE TECHNIQUE: The patient has iodinated contrast allergy. Dr. Mulligan was consulted and consented to ut ilizing thin barium for the study. A total of 1.5 ounces of thin barium was ingested. Total fluoroscopy time: 54 seconds Total images: 19. FINDINGS: The esophagus shows mild tertiary peristalsis. There is mild delay in emptying of contrast from the esophagus into the stomach. There is no contrast extravasation seen in the region of the GE junction and proximal stomach to sugg est leak. Trace sliver of free air is noted below the right hemidiaphragm IMPRESSION: 1. 1.5 ounces of thin barium was utilized due to iodinated contrast allergy. 2. Mild postoperative obstruction at the GE junction. 3. No evidence for leak. 4. Trace sliver of free air below the right hemidiaphragm.
[2019-07-16 12:18] VITALS: BP 116/73; TEMP 98.3
--- NOTE | 2019-07-16 13:47 | P.DS ---
Providers Date of admission: 07/15/19 08:42 Expected date of discharge: 07/16/19 Attending physician: Lico Mulligan Consults: 07/15/19 11:28 Consult Physician Routine Consulting Provider: Shahab Hopkins Consult Reason/Comments: Medical management Do you want consulting provider notified?: Yes Primary care physician: Fernanda Hopkins Hospital Course: 44-year-old female who underwent laparoscopic Anshul fundoplication. Patient has been doing well postoperatively. She is tolerating clear liquid diet. Esophagram completed postoperatively negative for leak or obstruction. Pain controlled on oral medications. vital signs have been stable. She is stable for discharge home today. Please see EMR for further hospital course details. Discharge diagnosis 1. GERD, status post laparoscopic Anshul fundoplication Nurse practitioner note has been reviewed by physician. Signing provider agrees with the documented findings, assessment, and plan of care. Patient Condition at Discharge: Stable Plan - Discharge Summary Discharge Rx Participant: Yes New Discharge Prescriptions: New Hydrocodone/Acetaminophen [Sadler 5-325] 1 tab PO Q4HR PRN 3 Days #18 tab PRN Reason: Pain No Action Phentermine HCl [Adipex-P] 18.75 mg PO DAILY DULoxetine HCL [Cymbalta] 60 mg PO HS Pantoprazole Sodium [Protonix] 40 mg PO DAILY Pilocarpine [Salagen] 5 mg PO TID Cyclobenzaprine [Flexeril] 10 mg PO HS Multivitamins, Thera [Multivitamin (formulary)] 1 tab PO DAILY Folic Acid 0.4 mg PO DAILY Methotrexate [Xatmep Oral Soln] 12.5 mg PO SA Discharge Medication List DULoxetine HCL [Cymbalta] 60 mg PO HS 04/03/19 [History] Pantoprazole Sodium [Protonix] 40 mg PO DAILY 04/03/19 [History] Phentermine HCl [Adipex-P] 18.75 mg PO DAILY 04/03/19 [History] Cyclobenzaprine [Flexeril] 10 mg PO HS 07/09/19 [History] Multivitamins, Thera [Multivitamin (formulary)] 1 tab PO DAILY 07/09/19 [History] Pilocarpine [Salagen] 5 mg PO TID 07/09/19 [History] Folic Acid 0.4 mg PO DAILY 07/10/19 [History] Methotrexate [Xatmep Oral Soln] 12.5 mg PO SA 07/10/19 [History] Hydrocodone/Acetaminophen [Sadler 5-325] 1 tab PO Q4HR PRN 3 Days #18 tab 07/16/19 [Rx] Follow up Appointment(s)/Referral(s): Fernanda Hopkins DO [Primary Care Provider] - 07/25/19 Lico Mulligan MD [STAFF PHYSICIAN] - 07/30/19 1:20 pm (You have a follow up appointment with Dr Mulligan on Tuesday, July 30, 2019 at 1:20 pm.) Patient Instructions/Handouts: *Surgery [facility] - ([facility]) Lap Anshul Fundiplication Post-Op Instructions, Fundoplication in Adults (DC), Fundoplic ation in Adults (GEN) Activity/Diet/Wound Care/Special Instructions: No heavy lifting, no driving, no swimming, no pools, no hot tubs, no baths No house work, no vacuuming. May shower, activity as tolerated, rest as needed. Drink plenty of fluids, small amounts frequently. Leave the tapes in place over your incisions, they will fall off on their own. Call Dr Mulligan if you develop a fever, chills, difficulty in swallowing, or if you have any other questions or concerns. Full liquid diet for two weeks Last dose of Sadler was given at 8:15 am, next dose due at 2:15 pm.
[2019-07-16 19:15] VITALS: PULSE 93
== END 2019-07-16 13:50 | disposition home or self-care (01) | DRG 328 ==
LOC: 2ORMAIN 07-15 08:42 → 6PED 07-15 11:39
PROVIDERS: ADMIT Surgery; ATTEND Surgery
PROC: 0BQT4ZZ Repair Diaphragm, Percutaneous Endoscopic Approach (ICD-10-PCS; 2019-07-15)
PROC: 0DV44ZZ Restriction of Esophagogastric Junction, Percutaneous Endoscopic Approach (ICD-10-PCS; principal; 2019-07-15 09:45)
DX: K21.0 Gastro-esophageal reflux disease with esophagitis (principal); D50.9 Iron deficiency anemia, unspecified; F32.5 Major depressive disorder, single episode, in full remission; M06.9 Rheumatoid arthritis, unspecified; M79.7 Fibromyalgia; K21.9 Gastro-esophageal reflux disease without esophagitis; G43.909 Migraine, unspecified, not intractable, without status migrainosus; K44.9 Diaphragmatic hernia without obstruction or gangrene; M19.90 Unspecified osteoarthritis, unspecified site; K58.9 Irritable bowel syndrome, unspecified; Z79.899 Other long term (current) drug therapy; Z86.010 Personal history of colon polyps; Z86.73 Personal history of transient ischemic attack (TIA), and cerebral infarction without residual deficits; Z91.041 Radiographic dye allergy status; Z91.018 Allergy to other foods; Z82.49 Family history of ischemic heart disease and other diseases of the circulatory system
CPT/HCPCS: 36415; 74210; 80048; 81025; 85025; 85027

== ENCOUNTER → 2019-07-11 | Outpatient (CLI) | payer BC ==
[2019-07-11 07:53] LABS: Anisocytosis Slight; HCT 29.6 % (34.0-46.0); HGB 8.9 gm/dL (11.4-16.0); Hypochromasia Marked; MCH 21.5 pg (25.0-35.0); MCHC 29.9 g/dL (31.0-37.0); MCV 71.8 fL (80.0-100.0); Mean Platelet Volume 6.7; Microcytosis Marked; Platelet Count 361 k/uL (150-450); RBC 4.13 m/uL (3.80-5.40); RDW 18.6 % (11.5-15.5); WBC 5.6 k/uL (3.8-10.6)
== END ==
LOC: LABPAT 07:34
PROVIDERS: ATTEND Surgery
DX: Z01.812 Encounter for preprocedural laboratory examination (principal); K44.9 Diaphragmatic hernia without obstruction or gangrene
CPT/HCPCS: 36415; 85027

== ENCOUNTER → 2019-09-13 | Outpatient (CLI) | payer BC ==
--- NOTE | 2019-09-22 16:32 | EEG ---
ELECTROENCEPHALOGRAM REPORT PROCEDURE DATE: 09/13/2019. ELECTROENCEPHALOGRAM (EEG) REPORT: TECHNIQUE: A routine 18 channel EEG was performed with video using the 10/20 international electrode placement system. HISTORY: Falls, difficulty swallowing, patient experiences "electrical shocks" and complains of eye pain. CURRENT MEDICATIONS: Methotrexate, Flexeril, Cymbalta, folate, iron. STUDY DURATION: 26 minutes. FINDINGS: BACKGROUND: Please note interpretation was performed at 5-microvolt sensitivity. Please note that a mild excess of beta frequency activity was noted. This is not epileptiform in nature and may in part be due to medication effect. BACKGROUND: The background activity consists of 8-9 hertz rhythmic waveforms symmetric through both posterior quadrants. ACTIVATION: Hyperventilation: Did not induce any changes. Photic stimulation: Symmetric driving seen. Sleep: Drowsy. ABNORMALITIES: None. IMPRESSION: Normal EEG. No epileptiform activity was present. No seizures were recorded. MMODL / IJN: [id number] /
== END ==
LOC: NEUROMAIN 09:48
PROVIDERS: ATTEND Family Medicine
DX: G40.A09 Absence epileptic syndrome, not intractable, without status epilepticus (principal)
CPT/HCPCS: 95816

== ENCOUNTER 2020-10-13 11:27 | Emergency (ER) | payer BC, OTHER ==
--- NOTE | 2020-10-13 12:04 | ED ---
General Adult HPI - General Chief complaint: Extremity Problem,Nontraumatic Stated complaint: Leg Pain Time Seen by Provider: 10/13/20 11:38 Source: patient, RN notes reviewed Mode of arrival: ambulatory Limitations: no limitations - History of Present Illness Initial comments: 45-year-old female with a past medical history of CVA, fibromyalgia, GERD, o steoarthritis presents to the emergency room for chief complaint of right hip pain. Patient reports that for the past 2 days she has had a numbness and tingling in the anterior and lateral right thigh. States it comes and goes. States today she was getting out of her chair and had severe groin pain and difficulty bearing weight on the right hip. She does not recall any other injuries. She said this did exacerbate the tingling sensation in her thigh again. Patient denies any swelling of the right thigh. Patient denies any weakness in the right lower extremity. Denies any weakness of the arms or difficulty talking. She denies back pain.Patient has no other complaints at this time including shortness of breath, chest pain, abdominal pain, nausea or vomiting, headache, or visual changes. - Related Data Home Medications Medication Instructions Recorded Confirmed Cyclobenzaprine [Flexeril] 10 mg PO HS 07/09/19 10/13/20 Pilocarpine [Salagen] 5 mg PO TID PRN 07/09/19 10/13/20 DULoxetine HCL [Cymbalta] 30 mg PO HS 10/13/20 10/13/20 Ferrous Sulfate [Iron] 325 mg PO HS 10/13/20 10/13/20 Folic Acid 1 mg PO DAILY 10/13/20 10/13/20 metHOTREXate sodium [Methotrexate] 12.5 mg PO SA 10/13/20 10/13/20 Allergies Allergy/AdvReac Type Severity Reaction Status Date / Time cinnamon Allergy Swelling Verified 10/13/20 12:02 wheat Allergy SORE Verified 10/13/20 12:02 THROAT AND MOUTH Iodinated Contrast Media AdvReac Severe COUGHING Verified 10/13/20 12:02 [Iodinated Contrast Media - IV Dye] grains Allergy SORE Uncoded 10/13/20 11:28 THROAT AND MOUTH Review of Systems ROS Statement: Those systems with pertinent positive or pertinent negative responses have been documented in the HPI. ROS Other: All systems not noted in ROS Statement are negative. Past Medical History Past Medical History: CVA/TIA, Fibromyalgia, GERD/Reflux, Osteoarthritis (OA), Rheumatoid Arthritis (RA) Additional Past Medical History / Comment(s): RARE MIGRAINES, I.B.S.; Eosinophilic Esophagitis; Colitis; Endometriosis, colon polyps, recent anemia, TIA's x4-some short term memory issues, HIATAL HERNIA History of Any Multi-Drug Resistant Organisms: None Reported Past Surgical History: Hernia Repair, Orthopedic Surgery Additional Past Surgical History / Comment(s): FRANKIE FOOT SURG, LAPAROSCOPY FOR ENDOMETRIOSIS, COLONOSCOPIES Past Anesthesia/Blood Transfusion Reactions: Previous Problems w/ Anesthesia, Motion Sickness Additional Past Anesthesia/Blood Transfusion Reaction / Comment(s): occasionally slow to wake up Past Psychological History: No Psychological Hx Reported Smoking Status: Never smoker Past Alcohol Use History: None Reported Past Drug Use History: None Reported - Past Family History Sister(s) Family Medical History: Deep Vein Thrombosis (DVT) Mother Additional Family Medical History / Comment(s): BENIGN BRAIN TUMOR General Exam Limitations: no limitations General appearance: alert, in no apparent distress Head exam: Present: atraumatic, normocephalic, normal inspection Eye exam: Present: normal appearance, PERRL, EOMI. Absent: scleral icterus, conjunctival injection, periorbital swelling ENT exam: Present: normal exam, mucous membranes moist Neck exam: Present: normal inspection, full ROM. Absent: tenderness, meningismus, lymphadenopathy Respiratory exam: Present: normal lung sounds bilaterally. Absent: respiratory distress, wheezes, rales, rhonchi, stridor Cardiovascular Exam: Present: regular rate, normal rhythm, normal heart sounds. Absent: systolic murmur, diastolic murmur, rubs, gallop, clicks GI/Abdominal exam: Present: soft, normal bowel sounds. Absent: distended, tenderness, guarding, rebound, rigid Extremities exam: Present: normal capillary refill (Capillary refill less than 2 seconds, dp/pt pulse 2+ in the right lower extremity.), other (Strength is 5 out of 5 with hip flexion, knee extension, and plantar/dorsi ankle flexion of the right lower extremity.). Absent: full ROM (Full range of motion of the right knee and ankle. However patient does have pain with flexion of the hip. She is able to flex about 45.), tenderness (No significant tenderness in the right lower leg including the groin.), pedal edema, joint swelling (No edema or erythema of the right lower extremity.), calf tenderness (no calf tenderness. neg jett sign) Back exam: Absent: vertebral tenderness Neurological exam: Absent: normal gait (Antalgic gait on the right lower extremity.) Course Vital Signs 10/13/20 11:30 Temperature 98.2 F Pulse Rate 92 Respiratory 18 Rate Blood Pressure 149/83 O2 Sat by Pulse 100 Oximetry Medical Decision Making - Medical Decision Making Vitals are stable. Patient is well-appearing. Patient is able to flex and extend the knee and ankle with full range of motion. However she does have some slightly limited flexion of the right hip secondary to pain. No weakness in the bilateral lower extremity strength and sensation intact throughout the lower extremities. DP pulses are 2+. Skin exam is normal. Ultrasound of the right lower extremity is negative for DVT. X-ray of the right hip is normal. No fractures. Given mechanism I do not have high suspicion for occult fracture of the hip. Patient symptoms are likely musculoskeletal. I did recommend Motrin and Tylenol for anti-inflammatories. Recommended she follow up with her doctor. She will return here for any worsening symptoms which were discussed with her.I discussed this case with attending Dr. Weiner who agrees with this assessment and treatment plan. Disposition Clinical Impression: Hip pain, Paresthesia Disposition: HOME SELF-CARE Condition: Good Instructions (If sedation given, give patient instructions): Paresthesia (ED), Hip Pain (ED) Additional Instructions: Please take anti-inflammatories such as Motrin and Tylenol for pain. Please follow-up with your doctor. Please return to the emergency room if you develop any worsening symptoms. Is patient prescribed a controlled substance at d/c from ED?: No Referrals: Fernanda Hopkins DO [Primary Care Provider] - 1-2 days Time of Disposition: 13:28
--- NOTE | 2020-10-13 12:06 | XR ---
EXAMINATION TYPE: XR Hip RT and AP Pelvis DATE OF EXAM: 10/13/2020 COMPARISON: None HISTORY: Right groin pain TECHNIQUE: AP pelvis 2 view right hip FINDINGS: Femoral heads articulate with the acetabulum. Symphysis pubis and sacroiliac joints are nor mal. Normal bowel gas is present. Femoral head articulates with the acetabulum. No acute fractures or dislocations of the right hip are evident. IMPRESSION: 1. Normal right hip and pelvis
--- NOTE | 2020-10-13 13:03 | US ---
EXAMINATION TYPE: US venous doppler duplex LE RT DATE OF EXAM: 10/13/2020 11:46 AM COMPARISON: NONE CLINICAL HISTORY: pain. Right leg pain SIDE PERFORMED: Right TECHNIQUE: The lower extremity deep venous system is examined utilizing real time linear array sonog fer with graded compression, doppler sonography and color-flow sonography. VESSELS IMAGED: Common Femoral Vein Deep Femoral Vein Greater Saphenous Vein * Femoral Vein Popliteal Vein Small Saphenous Vein * Proximal Calf Veins (* superficial vessels) Right Leg: Negative for DVT IMPRESSION: 1. Right lower extremity ultrasound negative for deep venous tendinosis
[2020-10-13 13:31] VITALS: BP 138/76; PULSE 60; RESP 14; TEMP 97.8
== END 2020-10-13 13:35 | disposition home or self-care (01) ==
LOC: EC 11:27
DX: M25.551 Pain in right hip (principal); R20.2 Paresthesia of skin; M79.7 Fibromyalgia; M19.90 Unspecified osteoarthritis, unspecified site; D64.9 Anemia, unspecified; M06.9 Rheumatoid arthritis, unspecified; Z79.899 Other long term (current) drug therapy; Z91.018 Allergy to other foods; Z91.041 Radiographic dye allergy status; Z86.73 Personal history of transient ischemic attack (TIA), and cerebral infarction without residual deficits; Z98.890 Other specified postprocedural states
CPT/HCPCS: 73502; 99284

== ENCOUNTER 2021-08-01 14:52 | Emergency (ER) | payer OTHER ==
[2021-08-01 15:02] VITALS: TEMP 97.9
[2021-08-01] MEDS ORDERED: SODIUM CHLORIDE 0.9% 1,000 ML IV STA (15:22)
[2021-08-01] MEDS ORDERED: MORPHINE SULFATE 4 MG/ML SYRINGE IV STA (15:22)
[2021-08-01 15:34] LABS: Anisocytosis Slight; Basophils % (A) 0 %; Eosinophils # (A) 0.1 k/uL (0-0.7); Eosinophils % (A) 1 %; HCT 30.3 % (34.0-46.0); HGB 9.2 gm/dL (11.4-16.0); Hypochromasia Marked; Lymphocytes # (A) 1.5 k/uL (1.0-4.8); Lymphocytes % (A) 20 %; MCH 21.4 pg (25.0-35.0); MCHC 30.4 g/dL (31.0-37.0); MCV 70.2 fL (80.0-100.0); Mean Platelet Volume 7.3; Microcytosis Marked; Monocytes # (A) 0.3 k/uL (0-1.0); Monocytes % (A) 4 %; Neutrophils # (A) 5.5 k/uL (1.3-7.7); Neutrophils % (A) 71 %; Platelet Count 393 k/uL (150-450); Poikilocytosis Slight; RBC 4.31 m/uL (3.80-5.40); RDW 16.5 % (11.5-15.5); WBC 7.7 k/uL (3.8-10.6)
[2021-08-01 15:42] LABS: ALT 22 U/L (4-34); AST 28 U/L (14-36); African American GFR (CKD) >90 (>60 ml/min/1.73 sqM); Albumin 3.8 g/dL (3.5-5.0); Alkaline Phosphatase 86 U/L (38-126); Amylase 47 U/L (30-110); Anion Gap 9 mmol/L; Blood Urea Nitrogen 7 mg/dL (7-17); Carbon Dioxide 21 mmol/L (22-30); Chloride 106 mmol/L (98-107); Glucose 96 mg/dL (74-99); Lipase 129 U/L (23-300); Non-African American GFR(CKD) >90 (>60 ml/min/1.73 sqM); Partial Thromboplastin Time 24.1 sec (22.0-30.0); Potassium 3.2 mmol/L (3.5-5.1); Prothrombin Time 10.5 sec (9.0-12.0); Sodium 136 mmol/L (137-145); Total Bilirubin 0.3 mg/dL (0.2-1.3); Total Protein 6.5 g/dL (6.3-8.2)
--- NOTE | 2021-08-01 15:53 | XR ---
EXAMINATION TYPE: XR chest 2V DATE OF EXAM: 08/01/2021 COMPARISON: 08/16/2015 HISTORY: Chest pain TECHNIQUE: FINDINGS: Heart and mediastinum are normal. Lungs are clear. Diaphragm is normal. Bony thorax is inta ct. There are chest leads. IMPRESSION: Normal chest. No change.
[2021-08-01] MEDS ORDERED: POTASSIUM CHLORIDE ER 20 MEQ TAB.ER PO STA (15:59)
[2021-08-01 16:38] VITALS: BP 125/80; PULSE 63; RESP 11
[2021-08-01 16:50] LABS: Appearance,Urine Cloudy (Clear); Bacteria,Urine Rare /hpf; Bilirubin,Urine Negative (Negative); Blood,Urine Negative (Negative); Color,Urine Colorless; Glucose,Urine (UA) Negative (Negative); Ketones,Urine Negative (Negative); Leukocyte Esterase,Urine Moderate (Negative); Mucus,Urine Rare /hpf; Nitrite,Urine Negative (Negative); PH, Urine 5.5 (5.0-8.0); Protein,Urine Negative (Negative); RBC,Urine <1 /hpf (0-5); Specific Gravity,Urine 1.003 (1.001-1.035); Squamous Epithelial Cell,Urine 3 /hpf (0-4); Urobilinogen,Urine <2.0 mg/dL (<2.0); WBC,Urine 4 /hpf (0-5)
--- NOTE | 2021-08-01 16:56 | ED ---
General Adult HPI - General Chief complaint: Chest Pain Stated complaint: chest pain, SOB Time Seen by Provider: 08/01/21 15:14 Source: patient, RN notes reviewed Mode of arrival: ambulatory Limitations: no limitations - History of Present Illness Initial comments: Patient is a 46-year-old female that presents to the emergency department complaining of sternal chest pain this been going on for 18 months. She notes the pain has gotten worse over the past few days stating that it is constant pulsing-type feeling. She notes that sometimes he gets sharp but then it goes when its own. She notes that when she is up and moving around seems to go away. She notes that when she is sitting or lying down try to relax the pain becomes worse. She denied any cardiac history. Patient does have a medical history of status post Gianni fundoplication, esophagitis, depression, iron deficiency, heartburn. She noted that no medications has really help the pain at this point. She can emergency room to get evaluated. She was otherwise a well- appearing 46-year-old female in no apparent distress or pain while sitting up in bed during the exam interview. She did report that she has a history of fibromyalgia so that she is always in pain but today at about a 5 or 6 out of 10 with no relief. She denied any shortness of breath headache nausea vomiting diarrhea constipation fever fatigue chills. - Related Data Home Medications Medication Instructions Recorded Confirmed Ferrous Sulfate [Iron] 325 mg PO HS 10/13/20 08/01/21 Folic Acid 1 mg PO DAILY 10/13/20 08/01/21 metHOTREXate sodium [Methotrexate] 20 mg PO SA 10/13/20 08/01/21 Potassium Chloride [Potassium 10 meq PO BID 08/01/21 08/01/21 Chloride ER] Allergies Allergy/AdvReac Type Severity Reaction Status Date / Time cinnamon Allergy Swelling Verified 08/01/21 14:58 wheat Allergy SORE Verified 08/01/21 14:58 THROAT AND MOUTH Iodinated Contrast Media AdvReac Severe COUGHING Verified 08/01/21 14:58 [Iodinated Contrast Media - IV Dye] grains Allergy SORE Uncoded 08/01/21 14:58 THROAT AND MOUTH Review of Systems ROS Statement: Those systems with pertinent positive or pertinent negative responses have been documented in the HPI. ROS Other: All systems not noted in ROS Statement are negative. Past Medical History Past Medical History: CVA/TIA, Fibromyalgia, GERD/Reflux, Osteoarthritis (OA), Rheumatoid Arthritis (RA) Additional Past Medical History / Comment(s): RARE MIGRAINES, I.B.S.; Eosinophilic Esophagitis; Colitis; Endometriosis, colon polyps, recent anemia, TIA's x4-some short term memory issues, HIATAL HERNIA History of Any Multi-Drug Resistant Organisms: None Reported Past Surgical History: Hernia Repair, Orthopedic Surgery Additional Past Surgical History / Comment(s): FRANKIE FOOT SURG, LAPAROSCOPY FOR ENDOMETRIOSIS, COLONOSCOPIES Past Anesthesia/Blood Transfusion Reactions: Previous Problems w/ Anesthesia, Motion Sickness Additional Past Anesthesia/Blood Transfusion Reaction / Comment(s): occasionally slow to wake up Past Psychological History: No Psychological Hx Reported Smoking Status: Never smoker Past Alcohol Use History: None Reported Past Drug Use History: None Reported - Past Family History Sister(s) Family Medical History: Deep Vein Thrombosis (DVT) Mother Additional Family Medical History / Comment(s): BENIGN BRAIN TUMOR General Exam Limitations: no limitations General appearance: alert, in no apparent distress, obese Head exam: Present: atraumatic, normocephalic, normal inspection Eye exam: Present: normal appearance, PERRL, EOMI. Absent: scleral icterus, conjunctival injection, periorbital swelling Neck exam: Present: normal inspection Respiratory exam: Present: normal lung sounds bilaterally. Absent: respiratory distress, wheezes, rales, rhonchi, stridor Cardiovascular Exam: Present: regular rate, normal rhythm, normal heart sounds. Absent: systolic murmur, diastolic murmur, rubs, gallop, clicks GI/Abdominal exam: Present: soft, normal bowel sounds. Absent: distended, tenderness, guarding, rebound, rigid Extremities exam: Present: normal inspection, full ROM, normal capillary refill. Absent: tenderness, pedal edema, joint swelling, calf tenderness Neurological exam: Present: alert, oriented X3 Psychiatric exam: Present: normal affect, normal mood Skin exam: Present: warm, dry, intact, normal color. Absent: rash Course Vital Signs 08/01/21 14:59 Temperature 97.9 F Pulse Rate 80 Respiratory 18 Rate Blood Pressure 118/73 O2 Sat by Pulse 97 Oximetry EKG Findings - EKG Comments: EKG Findings:: EKG: Ventricular rate 81 bpm [place] interval 154 ms, QRS duration 88 ms, QTC 446 ms, PRT axes 40/56/20, normal sinus rhythm, normal ECG. Medical Decision Making - Medical Decision Making 46-year-old female complaining of sternal chest pain with no radiation for the past 18 months worse over the last 2 days. Labs, EKG, guarding monitor, chest x-ray, 1 L normal saline, 4 mg morphine ordered. Labs: CBC unremarkable CMP shows a potassium of 3.2, 20 mEq of potassium ordered, troponin negative Chest x-ray negative for any acute process. Case discussed with Dr. Molina, patient discharge home with follow-up to her surgeon and primary care. - Lab Data Result diagrams: 08/01/21 Unknown 08/01/21 Unknown Lab Results 08/01/21 08/01/21 08/01/21 Range/Units Unknown Unknown Unknown WBC 7.7 (3.8-10.6) k/uL RBC 4.31 (3.80-5.40) m/uL Hgb 9.2 L (11.4-16.0) gm/dL Hct 30.3 L (34.0-46.0) % MCV 70.2 L (80.0-100.0) fL MCH 21.4 L (25.0-35.0) pg MCHC 30.4 L (31.0-37.0) g/dL RDW 16.5 H (11.5-15.5) % Plt Count 393 (150-450) k/uL MPV 7.3 Neutrophils % 71 % Lymphocytes % 20 % Monocytes % 4 % Eosinophils % 1 % Basophils % 0 % Neutrophils # 5.5 (1.3-7.7) k/uL Lymphocytes # 1.5 (1.0-4.8) k/uL Monocytes # 0.3 (0-1.0) k/uL Eosinophils # 0.1 (0-0.7) k/uL Basophils # 0.0 (0-0.2) k/uL Hypochromasia Marked Poikilocytosis Slight Anisocytosis Slight Microcytosis Marked PT 10.5 (9.0-12.0) sec INR 1.0 (<1.2) APTT 24.1 (22.0-30.0) sec Sodium 136 L (137-145) mmol/L Potassium 3.2 L (3.5-5.1) mmol/L Chloride 106 (98-107) mmol/L Carbon Dioxide 21 L (22-30) mmol/L Anion Gap 9 mmol/L BUN 7 (7-17) mg/dL Creatinine 0.67 (0.52-1.04) mg/dL Est GFR (CKD-EPI)AfAm >90 (>60 ml/min/1.73 sqM) Est GFR (CKD-EPI)NonAf >90 (>60 ml/min/1.73 sqM) Glucose 96 (74-99) mg/dL Calcium 9.0 (8.4-10.2) mg/dL Magnesium 2.0 (1.6-2.3) mg/dL Total Bilirubin 0.3 (0.2-1.3) mg/dL AST 28 (14-36) U/L ALT 22 (4-34) U/L Alkaline Phosphatase 86 (38-126) U/L Troponin I (0.000-0.034) ng/mL Total Protein 6.5 (6.3-8.2) g/dL Albumin 3.8 (3.5-5.0) g/dL Amylase 47 (30-110) U/L Lipase 129 (23-300) U/L 08/01/21 Range/Units Unknown WBC (3.8-10.6) k/uL RBC (3.80-5.40) m/uL Hgb (11.4-16.0) gm/dL Hct (34.0-46.0) % MCV (80.0-100.0) fL MCH (25.0-35.0) pg MCHC (31.0-37.0) g/dL RDW (11.5-15.5) % Plt Count (150-450) k/uL MPV Neutrophils % % Lymphocytes % % Monocytes % % Eosinophils % % Basophils % % Neutrophils # (1.3-7.7) k/uL Lymphocytes # (1.0-4.8) k/uL Monocytes # (0-1.0) k/uL Eosinophils # (0-0.7) k/uL Basophils # (0-0.2) k/uL Hypochromasia Poikilocytosis Anisocytosis Microcytosis PT (9.0-12.0) sec INR (<1.2) APTT (22.0-30.0) sec Sodium (137-145) mmol/L Potassium (3.5-5.1) mmol/L Chloride (98-107) mmol/L Carbon Dioxide (22-30) mmol/L Anion Gap mmol/L BUN (7-17) mg/dL Creatinine (0.52-1.04) mg/dL Est GFR (CKD-EPI)AfAm (>60 ml/min/1.73 sqM) Est GFR (CKD-EPI)NonAf (>60 ml/min/1.73 sqM) Glucose (74-99) mg/dL Calcium (8.4-10.2) mg/dL Magnesium (1.6-2.3) mg/dL Total Bilirubin (0.2-1.3) mg/dL AST (14-36) U/L ALT (4-34) U/L Alkaline Phosphatase (38-126) U/L Troponin I <0.012 (0.000-0.034) ng/mL Total Protein (6.3-8.2) g/dL Albumin (3.5-5.0) g/dL Amylase (30-110) U/L Lipase (23-300) U/L - EKG Data -: EKG Interpreted by Ok EKG shows normal: sinus rhythm Rate: normal EKG Comments: EKG: Ventricular rate 81 bpm IL interval 154 ms, QRS duration 88 ms, QTC 446 ms, PRT axes 40/56/20, normal sinus rhythm, normal ECG. - Radiology Data Radiology results: report reviewed, image reviewed Chest x-ray: Normal chest. No change. Disposition Clinical Impression: Atypical chest pain, GERD (gastroesophageal reflux disease) Disposition: HOME SELF-CARE Condition: Stable Instructions (If sedation given, give patient instructions): Chest Pain (ED) Additional Instructions: Please return to the Emergency Department if symptoms worsen or any other concerns Follow-up with Dr. Mulligan as needed. Go to endoscopy and colonoscopy as planned. . Is patient prescribed a controlled substance at d/c from ED?: No Referrals: Fernanda Hopkins DO [Primary Care Provider] - 1-2 days Lico Mulligan MD [STAFF PHYSICIAN] - 1-2 days Time of Disposition: 16:56
== END 2021-08-01 16:59 | disposition home or self-care (01) ==
LOC: EC 14:52
DX: K21.9 Gastro-esophageal reflux disease without esophagitis (principal); Z91.018 Allergy to other foods; Z91.041 Radiographic dye allergy status
CPT/HCPCS: 36415; 93005; 80053; 82150; 83690; 83735; 84484; 85025; 85610; 85730; 81001; 71046; 99285; 96374; J2270

== ENCOUNTER → 2021-08-18 | Outpatient (CLI) | payer OTHER ==
--- NOTE | 2021-08-19 05:27 | MR ---
EXAMINATION TYPE: MR shoulder RT wo con DATE OF EXAM: 08/18/2021 COMPARISON: None HISTORY: Shoulder pain and pain when raising arm over head, 20 years. Multiplanar multiecho imaging of the right shoulder without contrast. Supraspinatus tendon is intact there is some spurring at the AC joint and impingement on the supraspi natus tendon and muscle. The subscapularis tendon is intact. Biceps tendon appears intact. The glenoi d kleber appear intact. There is 6.5 x 2.5 cm lesion in the proximal humerus which appears to be predominantly low signal on the T1 images and predominantly high signal on T2 images. There are multiple areas of small cystic ch anges. Lesion is metaphyseal and also extending in slightly into the epiphysis and the diaphysis. I d o not see a break through the cortex. There is no soft tissue mass component. There appears to be shwetha e cortical thinning however in the anterior humerus. There is short zone of transition. I see no frac ture line. IMPRESSION: Large metaphyseal lesion in the proximal humerus with short zone of transition. Contrast exam would b e helpful for further characterization. The lesion is not clearly benign and not clearly malignant. I would consider possibilities of a giant cell tumor, brown tumor of hyperparathyroidism. I favor a be nign etiology in view of the lack of cortical breakthrough. No evidence of rotator cuff tear. There is subacromial joint space narrowing and impingement.
== END | disposition home or self-care (01) ==
LOC: RADMRIMAIN 20:02
PROVIDERS: ATTEND Orthopaedic Surgery
DX: M25.811 Other specified joint disorders, right shoulder (principal); M25.511 Pain in right shoulder

== ENCOUNTER → 2021-08-31 | Outpatient (CLI) | payer OTHER ==
[2021-08-31 11:42] LABS: HCT 31.7 % (37.2-46.3); HGB 9.1 g/dL (12.0-15.0); MCHC 28.7 g/dL (32.0-37.0); MCV 69.8 fL (80.0-97.0); Mean Platelet Volume 11.3 fL (9.5-12.2); Platelet Count 334 X 10*3/uL (140-440); RBC 4.54 X 10*6/uL (4.10-5.20); RDW 18.2 % (11.5-14.5); WBC 7.19 X 10*3/uL (4.50-10.00)
[2021-08-31 13:38] LABS: Protein, Total 6.7 g/dL (6.2-8.2)
[2021-08-31 13:54] LABS: Erythrocyte Sedimentation Rate 23 mm/Hr (0-20)
[2021-08-31 18:03] LABS: C Reactive Protein 0.6 mg/dL (0.00-0.80)
[2021-08-31 18:27] LABS: African American GFR (CKD) 134.7 (60.0-200.0); Albumin 4.3 g/dL (3.8-4.9); Albumin/Globulin Ratio 1.83 (1.60-3.17); Anion Gap 16.9 mmol/L (4.00-12.00); BUN/Creat Ratio 16.23 Ratio (12.00-20.00); Blood Urea Nitrogen 8.3 mg/dL (9.0-27.0); Calcium 8.9 mg/dL (8.7-10.3); Carbon Dioxide 16.6 mmol/L (21.6-31.8); Globulin 2.3 g/dL (1.6-3.3); Non-African American GFR(CKD) 116.2 (60.0-200.0); Potassium 3.5 mmol/L (3.5-5.5); Total Bilirubin 0.3 mg/dL (0.30-1.20); Total Protein 6.6 g/dL (6.2-8.2)
== END | disposition home or self-care (01) ==
LOC: LABWHC1 07:15
PROVIDERS: ATTEND Orthopaedic Surgery
DX: D49.2 Neoplasm of unspecified behavior of bone, soft tissue, and skin (principal)
CPT/HCPCS: 36415; 80053; 82306; 84165; 84166; 85027; 85652; 86140

== ENCOUNTER → 2021-09-17 | Outpatient (CLI) | payer OTHER ==
--- NOTE | 2021-09-17 18:33 | CT ---
EXAMINATION TYPE: CT ChestAbdPelvis wo con DATE OF EXAM: 09/17/2021 COMPARISON: 02/23/2015 HISTORY: right arm pian x2 years, recent dx of tumors of right arm CT DLP: 1509.4mGycm Unenhanced CT of the Chest, Abdomen and Pelvis Unenhanced CT of the chest ,abdomen and pelvis is performed. The lack of intravenous contrast limits evaluation of the solid and hollow viscera. Oral contrast: Yes CT Chest: LUNGS: The lungs are clear and free of infiltrate or atelectasis. No pulmonary nodule or mass is det ected. No pleural effusion or CT evidence of interstitial lung disease. MEDIASTINUM: Thoracic aorta is of normal caliber. The heart is not enlarged. No evidence for media stinal mass or adenopathy. HILAR STRUCTURES: No evidence for mass. No hilar adenopathy is appreciated. OTHER: Expansile cystic lesion in the region of the right humeral neck may reflect a bone cyst or ane urysmal bone cyst. Lesions of other etiology are not excluded. Radiographic correlation advised. CONTRAST CT ABDOMEN AND PELVIS: LIVER/GB: No calcified gallstones. No space occupying hepatic lesion. Biliary tree is of normal ca liber. PANCREAS: No inflammation. No distinct mass. SPLEEN: No splenic enlargement. No lesion seen. ADRENALS: No nodule. No thickening. KIDNEYS/BLADDER: No hydronephrosis. No nephrolithiasis. No disctinct renal mass. BOWEL: Normal appendix. Normal bowel caliber. No inflammation. GENITAL ORGANS: No gross abnormality. LYMPH NODES: No greater than 1cm abdominal or pelvic lymph nodes areappreciated. AORTA: No significant abnormality. OSSEOUS STRUCTURES: No significant abnormality is seen. OTHER: No significant additional abnormality is seen. IMPRESSION: 1. Expansile cystic lesion in the region of the right humeral neck may reflect a bone cyst or aneurys mal bone cyst. Lesions of other etiology are not excluded. Radiographic correlation advised. 2. Examination is otherwise within normal limits.
== END | disposition home or self-care (01) ==
LOC: RADCTMAIN 17:18
PROVIDERS: ATTEND Orthopaedic Surgery
DX: R22.31 Localized swelling, mass and lump, right upper limb (principal)
CPT/HCPCS: 71250; 74176

== ENCOUNTER → 2021-10-01 | Outpatient (CLI) | payer OTHER ==
--- NOTE | 2021-10-04 11:49 | MM ---
Reason for exam: screening (asymptomatic). Last mammogram was performed 4 years and 8 months ago. History: Took hormonal contraceptives for 3 years. Physical Findings: A clinical breast exam by your physician is recommended on an annual basis and results should be correlated with mammographic findings. MG Screening Mammo w CAD Bilateral CC and MLO view(s) were taken. Prior study comparison: January 20, 2017, bilateral MG screening mammo w CAD. The breast tissue is heterogeneously dense. This may lower the sensitivity of mammography. There is no discrete abnormality. ASSESSMENT: Negative, BI-RAD 1 RECOMMENDATION: Routine screening mammogram of both breasts in 1 year.
== END | disposition home or self-care (01) ==
LOC: RADMAMWWP 07:20
PROVIDERS: ATTEND Family Medicine
DX: Z12.31 Encounter for screening mammogram for malignant neoplasm of breast (principal)
CPT/HCPCS: 77067

== ENCOUNTER → 2022-06-08 | Outpatient (CLI) | payer OTHER | END | disposition home or self-care (01) | LOC: LABWHC1 12:27 | PROVIDERS: ATTEND Family Medicine | DX: R10.13 Epigastric pain (principal); L95.9 Vasculitis limited to the skin, unspecified | CPT/HCPCS: 36415; 85379 ==

== ENCOUNTER 2022-09-06 13:18 | Emergency (ER) | payer OTHER ==
[2022-09-06 13:32] VITALS: TEMP 97.6
[2022-09-06] MEDS ORDERED: KETOROLAC 15 MG/ML 1 ML VIAL IVP STA (15:33)
--- NOTE | 2022-09-06 15:52 | ED ---
Extremity Problem HPI - General Chief complaint: Extremity Problem,Nontraumatic Stated complaint: Possible Blood Clots Time Seen by Provider: 09/06/22 13:49 Source: patient, RN notes reviewed Mode of arrival: ambulatory Limitations: no limitations - History of Present Illness Initial comments: This is a 47-year-old female who presents to the emergency department for lower extremity pain and swelling. She returned from a road trip several days ago, and states that since then, she has had increased pain and swelling to both lower extremities. She has been using [id number] medication, such as diclofenac and Biofreeze with no relief. She is now having difficulty putting weight on the legs. She does note an increase in shortness of breath as well. Denies any chest pain. She was supposed to see her primary care provider today, however they advised she come to the emergency department for an ultrasound of both legs. Denies any fevers, chills, sore throat, cough, chest pain, palpitations, abdominal pain, nausea, vomiting, diarrhea, back pain, or headaches. MD Complaint: extremity pain, extremity swelling Onset/Timin -: days(s) Location: bilateral lower extremity Associated Symptoms: shortness of breath - Related Data Home Medications Medication Instructions Recorded Confirmed Ferrous Sulfate [Iron] 325 mg PO HS 10/13/20 08/01/21 Folic Acid 1 mg PO DAILY 10/13/20 08/01/21 metHOTREXate sodium [Methotrexate] 20 mg PO SA 10/13/20 08/01/21 Potassium Chloride [Potassium 10 meq PO BID 08/01/21 08/01/21 Chloride ER] Allergies Allergy/AdvReac Type Severity Reaction Status Date / Time cinnamon Allergy Swelling Verified 09/06/22 13:32 wheat Allergy SORE Verified 09/06/22 13:32 THROAT AND MOUTH Iodinated Contrast Media AdvReac Severe COUGHING Verified 09/06/22 13:32 [Iodinated Contrast Media - IV Dye] grains Allergy SORE Uncoded 09/06/22 13:32 THROAT AND MOUTH Review of Systems ROS Statement: Those systems with pertinent positive or pertinent negative responses have been documented in the HPI. ROS Other: All systems not noted in ROS Statement are negative. Past Medical History Past Medical History: CVA/TIA, Fibromyalgia, GERD/Reflux, Osteoarthritis (OA), Rheumatoid Arthritis (RA) Additional Past Medical History / Comment(s): RARE MIGRAINES, I.B.S.; Eosinophilic Esophagitis; Colitis; Endometriosis, colon polyps, recent anemia, TIA's x4-some short term memory issues, HIATAL HERNIA History of Any Multi-Drug Resistant Organisms: None Reported Past Surgical History: Hernia Repair, Hysterectomy, Orthopedic Surgery Additional Past Surgical History / Comment(s): FRANKIE FOOT SURG, LAPAROSCOPY FOR ENDOMETRIOSIS, COLONOSCOPIES Past Anesthesia/Blood Transfusion Reactions: Previous Problems w/ Anesthesia, Motion Sickness Additional Past Anesthesia/Blood Transfusion Reaction / Comment(s): occasionally slow to wake up Past Psychological History: No Psychological Hx Reported Smoking Status: Never smoker Past Alcohol Use History: None Reported Past Drug Use History: None Reported - Past Family History Sister(s) Family Medical History: Deep Vein Thrombosis (DVT) Mother Additional Family Medical History / Comment(s): BENIGN BRAIN TUMOR General Exam Limitations: no limitations General appearance: alert, in no apparent distress Head exam: Present: atraumatic, normocephalic, normal inspection Respiratory exam: Present: normal lung sounds bilaterally. Absent: respiratory distress, wheezes, rales, rhonchi, stridor Cardiovascular Exam: Present: regular rate, normal rhythm, normal heart sounds. Absent: systolic murmur, diastolic murmur, rubs, gallop, clicks Extremities exam: Present: other (Bilateral lower extremity swelling with calf tenderness. No pitting edema. No erythema or increased heat. 2+ dorsalis pedis and tibialis posterior pulses bilaterally. Capillary refill less than 1 second bilaterally.) Neurological exam: Present: alert, oriented X3, CN II-XII intact Psychiatric exam: Present: normal affect, normal mood Skin exam: Present: warm, dry, intact, normal color. Absent: rash Course Vital Signs 09/06/22 09/06/22 13:29 18:30 Temperature 97.6 F Pulse Rate 72 56 L Respiratory 20 16 Rate Blood Pressure 158/88 128/77 O2 Sat by Pulse 99 100 Oximetry Medical Decision Making - Medical Decision Making This is a 47-year-old female who presents to the emergency department with bilateral lower extremity pain and swelling. Lab work was nonactionable. Duplex ultrasound of the bilateral lower extremities obtained, and this did not identify any signs of a DVT. Discussed with patient that at this time we are unable to find a cause of her leg pain, and further workup may be warranted. Instructed her to keep her legs elevated and to alternate with ibuprofen and Tylenol for pain relief. She'll need to follow up with her primary care provider to discuss additional testing. Return precautions reviewed in depth, the patient is instructed to return to the emergency department with any new, worsening, or concerning symptoms. Patient verbalized understanding. This case was discussed in detail with the attending ED physician. Presentation, findings, and treatment plan discussed in detail as well. - Lab Data Result diagrams: 09/06/22 16:26 09/06/22 16: Lab Results 09/06/22 09/06/22 09/06/22 Range/Units 16:26 16: 16:26 WBC 10.6 (3.8-10.6) k/uL RBC 4.78 (3.80-5.40) m/uL Hgb 13.9 (11.4-16.0) gm/dL Hct 40.8 (34.0-46.0) % MCV 85.4 (80.0-100.0) fL MCH 29.0 (25.0-35.0) pg MCHC 34.0 (31.0-37.0) g/dL RDW 18.9 H (11.5-15.5) % Plt Count 208 (150-450) k/uL MPV 9.0 Neutrophils % 80 % Lymphocytes % 14 % Monocytes % 4 % Eosinophils % 1 % Basophils % 0 % Neutrophils # 8.5 H (1.3-7.7) k/uL Lymphocytes # 1.5 (1.0-4.8) k/uL Monocytes # 0.5 (0-1.0) k/uL Eosinophils # 0.1 (0-0.7) k/uL Basophils # 0.0 (0-0.2) k/uL Anisocytosis Slight Microcytosis Slight PT 10.4 (9.0-12.0) sec INR 0.9 (<1.2) APTT 25.5 (22.0-30.0) sec Sodium 138 (137-145) mmol/L Potassium 3.5 (3.5-5.1) mmol/L Chloride 105 (98-107) mmol/L Carbon Dioxide 23 (22-30) mmol/L Anion Gap 10 mmol/L BUN 12 (7-17) mg/dL Creatinine 0.61 (0.52-1.04) mg/dL Est GFR (CKD-EPI)AfAm >90 (>60 ml/min/1.73 sqM) Est GFR (CKD-EPI)NonAf >90 (>60 ml/min/1.73 sqM) Glucose 86 (74-99) mg/dL Calcium 9.4 (8.4-10.2) mg/dL Magnesium 2.0 (1.6-2.3) mg/dL Total Bilirubin 0.5 (0.2-1.3) mg/dL AST 17 (14-36) U/L ALT 22 (4-34) U/L Alkaline Phosphatase 78 (38-126) U/L Troponin I (0.000-0.034) ng/mL NT-Pro-B Natriuret Pep pg/mL Total Protein 6.7 (6.3-8.2) g/dL Albumin 4.3 (3.5-5.0) g/dL Urine Color Urine Appearance (Clear) Urine pH (5.0-8.0) Ur Specific [place] (1.001-1.035) Urine Protein (Negative) Urine Glucose (UA) (Negative) Urine Ketones (Negative) Urine Blood (Negative) Urine Nitrite (Negative) Urine Bilirubin (Negative) Urine Urobilinogen (<2.0) mg/dL Ur Leukocyte Esterase (Negative) Urine WBC (0-5) /hpf Ur Squamous Epith Cells (0-4) /hpf Urine Mucus (None) /hpf 09/06/22 09/06/22 09/06/22 Range/Units 16:26 16:26 16:26 WBC (3.8-10.6) k/uL RBC (3.80-5.40) m/uL Hgb (11.4-16.0) gm/dL Hct (34.0-46.0) % MCV (80.0-100.0) fL MCH (25.0-35.0) pg MCHC (31.0-37.0) g/dL RDW (11.5-15.5) % Plt Count (150-450) k/uL MPV Neutrophils % % Lymphocytes % % Monocytes % % Eosinophils % % Basophils % % Neutrophils # (1.3-7.7) k/uL Lymphocytes # (1.0-4.8) k/uL Monocytes # (0-1.0) k/uL Eosinophils # (0-0.7) k/uL Basophils # (0-0.2) k/uL Anisocytosis Microcytosis PT (9.0-12.0) sec INR (<1.2) APTT (22.0-30.0) sec Sodium (137-145) mmol/L Potassium (3.5-5.1) mmol/L Chloride (98-107) mmol/L Carbon Dioxide (22-30) mmol/L Anion Gap mmol/L BUN (7-17) mg/dL Creatinine (0.52-1.04) mg/dL Est GFR (CKD-EPI)AfAm (>60 ml/min/1.73 sqM) Est GFR (CKD-EPI)NonAf (>60 ml/min/1.73 sqM) Glucose (74-99) mg/dL Calcium (8.4-10.2) mg/dL Magnesium (1.6-2.3) mg/dL Total Bilirubin (0.2-1.3) mg/dL AST (14-36) U/L ALT (4-34) U/L Alkaline Phosphatase (38-126) U/L Troponin I <0.012 (0.000-0.034) ng/mL NT-Pro-B Natriuret Pep 155 pg/mL Total Protein (6.3-8.2) g/dL Albumin (3.5-5.0) g/dL Urine Color Yellow Urine Appearance Clear (Clear) Urine pH 5.5 (5.0-8.0) Ur Specific [place] 1.023 (1.001-1.035) Urine Protein Negative (Negative) Urine Glucose (UA) Negative (Negative) Urine Ketones Negative (Negative) Urine Blood Negative (Negative) Urine Nitrite Negative (Negative) Urine Bilirubin Negative (Negative) Urine Urobilinogen <2.0 (<2.0) mg/dL Ur Leukocyte Esterase Trace H (Negative) Urine WBC 1 (0-5) /hpf Ur Squamous Epith Cells 2 (0-4) /hpf Urine Mucus Many H (None) /hpf - Radiology Data Radiology results: report reviewed, image reviewed Disposition Clinical Impression: Swelling of both lower extremities Disposition: HOME SELF-CARE Instructions (If sedation given, give patient instructions): Leg Pain (ED) Additional Instructions: Return to the emergency department with any new, worsening, or concerning symptoms. Keep the legs elevated and alternate with ibuprofen and Tylenol as needed for pain relief. Follow up with your primary care provider in 1-2 days. Is patient prescribed a controlled substance at d/c from ED?: No Referrals: Fernanda Hopkins DO [Primary Care Provider] - 1-2 days
[2022-09-06 16:30] LABS: Anisocytosis Slight; Basophils % (A) 0 %; Eosinophils # (A) 0.1 k/uL (0-0.7); Eosinophils % (A) 1 %; HCT 40.8 % (34.0-46.0); HGB 13.9 gm/dL (11.4-16.0); Lymphocytes # (A) 1.5 k/uL (1.0-4.8); Lymphocytes % (A) 14 %; MCV 85.4 fL (80.0-100.0); Microcytosis Slight; Monocytes # (A) 0.5 k/uL (0-1.0); Monocytes % (A) 4 %; Neutrophils # (A) 8.5 k/uL (1.3-7.7); Neutrophils % (A) 80 %; Platelet Count 208 k/uL (150-450); RBC 4.78 m/uL (3.80-5.40); RDW 18.9 % (11.5-15.5); WBC 10.6 k/uL (3.8-10.6)
[2022-09-06 16:36] LABS: Appearance,Urine Clear (Clear); Bilirubin,Urine Negative (Negative); Blood,Urine Negative (Negative); Color,Urine Yellow; Glucose,Urine (UA) Negative (Negative); Ketones,Urine Negative (Negative); Leukocyte Esterase,Urine Trace (Negative); Mucus,Urine Many /hpf; Nitrite,Urine Negative (Negative); PH, Urine 5.5 (5.0-8.0); Protein,Urine Negative (Negative); Specific Gravity,Urine 1.023 (1.001-1.035); Squamous Epithelial Cell,Urine 2 /hpf (0-4); Urobilinogen,Urine <2.0 mg/dL (<2.0); WBC,Urine 1 /hpf (0-5)
[2022-09-06 16:39] LABS: ALT 22 U/L (4-34); AST 17 U/L (14-36); African American GFR (CKD) >90 (>60 ml/min/1.73 sqM); Albumin 4.3 g/dL (3.5-5.0); Alkaline Phosphatase 78 U/L (38-126); Anion Gap 10 mmol/L; Blood Urea Nitrogen 12 mg/dL (7-17); Calcium 9.4 mg/dL (8.4-10.2); Carbon Dioxide 23 mmol/L (22-30); Chloride 105 mmol/L (98-107); Glucose 86 mg/dL (74-99); Non-African American GFR(CKD) >90 (>60 ml/min/1.73 sqM); Potassium 3.5 mmol/L (3.5-5.1); Sodium 138 mmol/L (137-145); Total Bilirubin 0.5 mg/dL (0.2-1.3); Total Protein 6.7 g/dL (6.3-8.2)
[2022-09-06 16:42] LABS: INR 0.9 (<1.2); Partial Thromboplastin Time 25.5 sec (22.0-30.0); Prothrombin Time 10.4 sec (9.0-12.0)
--- NOTE | 2022-09-06 17:29 | US ---
EXAMINATION TYPE: US venous doppler duplex LE DATE OF EXAM: 09/06/2022 5:08 PM COMPARISON: US 2019 CLINICAL HISTORY: bilateral leg pain and swelling. SIDE PERFORMED: Bilateral TECHNIQUE: The lower extremity deep venous system is examined utilizing real time linear array sonog fer with graded compression, doppler sonography and color-flow sonography. VESSELS IMAGED: Common Femoral Vein Deep Femoral Vein Greater Saphenous Vein * Femoral Vein Popliteal Vein Small Saphenous Vein * Proximal Calf Veins (* superficial vessels) Right Leg: Appears negative for DVT Left Leg: Appears negative for DVT IMPRESSION: No evidence of deep vein thrombosis in both legs.
[2022-09-06 18:31] VITALS: BP 128/77; PULSE 56; RESP 16
== END 2022-09-06 18:31 | disposition home or self-care (01) ==
LOC: EC 13:18
DX: R22.43 Localized swelling, mass and lump, lower limb, bilateral (principal); Z86.73 Personal history of transient ischemic attack (TIA), and cerebral infarction without residual deficits; K21.9 Gastro-esophageal reflux disease without esophagitis; M19.90 Unspecified osteoarthritis, unspecified site; M06.9 Rheumatoid arthritis, unspecified; Z91.018 Allergy to other foods; Z91.041 Radiographic dye allergy status; Z79.899 Other long term (current) drug therapy
CPT/HCPCS: 36415; 83880; 80053; 83735; 84484; 85025; 85610; 85730; 81001; 93970; 99285; 96374; J1885

== ENCOUNTER → 2022-10-31 | Outpatient (CLI) | payer OTHER ==
--- NOTE | 2022-11-01 09:37 | MM ---
Reason for Exam: Screening (asymptomatic). Last mammogram was performed 1 year(s) and 1 month(s) ago. Patient History: Menarche at age 10. First Full-Term at age 21. Left ovary removed at age 47. Hysterectomy at age 47. Patient used Hormonal Contraceptives for 3 years. Last menstrual period: Risk Values: Kaylee 5 year model risk: 0.8%. NCI Lifetime model risk: 9.3%. Prior Study Comparison: 01/20/2017 Bilateral Screening Mammogram, [facility]. 10/01/2021 Bilateral Screening Mammogram, [facility]. Tissue Density: The breast tissue is heterogeneously dense. This may lower the sensitivity of mammography. Findings: Analyzed By CAD. There is no suspicious group of microcalcifications or new suspicious mass in either breast. No significant change from prior exams. Overall Assessment: Negative, BI-RAD 1 Management: Screening Mammogram of both breasts in 1 year. A clinical breast exam by your physician is recommended on an annual basis and results should be correlated with mammographic findings. Electronically signed and approved by: Kevin Espana D.O.
== END | disposition home or self-care (01) ==
LOC: RADMAMWWP 07:27
PROVIDERS: ATTEND Family Medicine
DX: Z12.31 Encounter for screening mammogram for malignant neoplasm of breast (principal); Z90.721 Acquired absence of ovaries, unilateral
CPT/HCPCS: 77067

== ENCOUNTER → 2024-02-02 | Outpatient (CLI) | payer OTHER ==
--- NOTE | 2024-02-04 17:01 | MM ---
Reason for Exam: Screening (asymptomatic). Last mammogram was performed 1 year(s) and 3 month(s) ago. Patient History: Menarche at age 10. First Full-Term at age 21. Left ovary removed at age 47. Hysterectomy at age 47. Patient used Hormonal Contraceptives for 3 years. Last menstrual period: Risk Values: Kaylee 5 year model risk: 0.9%. NCI Lifetime model risk: 9.2%. Prior Study Comparison: 01/20/2017 Bilateral Screening Mammogram, [facility]. 10/01/2021 Bilateral Screening Mammogram, [facility]. 10/31/2022 Bilateral MG screening mammo w CAD, [facility]. Tissue Density: There are scattered areas of fibroglandular density. Findings: Analyzed By CAD. There is no suspicious group of microcalcifications or new suspicious mass in either breast. Overall Assessment: Negative, BI-RAD 1 Management: Screening Mammogram of both breasts in 1 year. . Patient should continue monthly self-breast exams. A clinical breast exam by your physician is recommended on an annual basis. This exam should not preclude additional follow-up of suspicious palpable abnormalities. Note on Kaylee scores and lifetime risk: 1. A Kaylee score greater than 3% is considered moderate risk. If this is the case, consider specialist referral to assess eligibility for a risk reducing agent. 2. If overall lifetime risk for the development of breast cancer is 20% or higher, the patient may qualify for future screening with alternating mammogram and breast MRI. Electronically signed and approved by: Amauri Monteiro M.D. Radiologist
== END | disposition home or self-care (01) ==
LOC: RADMAMWWP 07:17
PROVIDERS: ATTEND Family Medicine
DX: Z12.31 Encounter for screening mammogram for malignant neoplasm of breast (principal)
CPT/HCPCS: 77067